=== PATIENT | female | born 1960 | race Caucasian/White ===

== ENCOUNTER 2017-10-25 11:37 | Day surgery (SDC) | payer OTHER ==
[~2017-10-25] VITALS: Ht 157.5 cm; Wt 124.5 kg
--- NOTE | ~2017-10-25 | OP ---
PATIENT NAME: JASON OZUNA MEDICAL RECORD: [id number] :62 LOCATION:[facility], [facility]IN [facility] ADMISSION DATE: SURGEON: CHAYO BRAN DO DATE OF OPERATION: 10/25/2017 PROCEDURE: Colonoscopy with polypectomy, biopsy, stool collection. SCOPE: Olympus video pediatric colonoscope. MEDICATIONS: Propofol 700 mg IV per anesthesia. WITHDRAWAL TIME: 16 minutes. ESTIMATED BLOOD LOSS: Minimal. COMPLICATIONS: None. FINDINGS: Informed consent was given. The patient was made comfortable with the above medication. After reaching an adequate level of sedation by slow IV push, the patient was placed on her left side. A digital rectal examination was performed and was normal. The endoscope was then advanced under direct visualization through the rectum to the cecum with visualization of the appendiceal orifice and the ileocecal valve. The terminal ileum was briefly intubated and appeared normal. The endoscope was then slowly withdrawn and mucosa was carefully examined. The prep quality was fair. There were 3 polyps visualized on today's examination. The first was located in the ascending colon. It was a benign-appearing sessile polyp, which measured approximately 4 mm in diameter. It was removed using hot snare in one piece and completely retrieved. In the transverse colon, there were 2 more polyps which were benign appearing and sessile. They ranged in size from 3-6 mm in diameter. They were both removed using hot forceps and completely removed. Retroflexion was performed in the rectum with visualization of grade I internal hemorrhoids without active bleeding. There were no other polyps, diverticula, or other abnormalities visualized on today's examination. During the procedure, random biopsies were taken with cold forceps to submit for histology and to rule out microscopic colitis. Stool collection was also performed to send for xTAG studies to rule out infectious causes of the patient's diarrhea. IMPRESSION: 1. Three polyps as described above, removed using combination of hot snare and hot forceps. 2. Grade I internal hemorrhoids without active bleeding. 3. Otherwise, normal colonoscopy with collection of stool and random biopsies. PLAN AND RECOMMENDATIONS: 1. Discharge home when recovery parameters are met. 2. High-fiber diet. 3. Continue current medications. 4. We will start cholestyramine 4 grams b.i.d. to bulk the stool and to treat bile salt-induced diarrhea. 5. Further plans will depend on results of cholestyramine trial. 6. Recall colonoscopy in 3 years based on number and types of polyps removed on today's examination. TRANSINT:[id number] Voice Confirmation ID: [id number] DOCUMENT ID: [id number] OPERATIVE REPORT [id number] JASON OZUNA NATHAN A DO at 0934 CC: [id number] DICTATION DATE: 10/25/17 1515 CASINO GAMES DEALER: 10/25/17 1541 [facility] 10/25/17 [id number] [place] [address]
[2017-10-25] MEDS ORDERED: HYDROCODON-ACE1 EAC7 PO (13:24)
[2017-10-25] MEDS ORDERED: TENORMIN50 MG PO (13:25)
[2017-10-25] MEDS ORDERED: SOMA350 MG PO (13:25)
[2017-10-25] MEDS ORDERED: PREMARIN1.25 MG PO (13:26)
[2017-10-25] MEDS ORDERED: ULTRAM50 MG PO (13:26)
[2017-10-25] MEDS ORDERED: ZANAFLEX4 MG PO (13:27)
[2017-10-25] MEDS ORDERED: ZOFRAN4 MG PO (13:27)
[2017-10-25] MEDS ORDERED: REGLAN5 MG PO (13:28)
[2017-10-25] MEDS ORDERED: CARAFATE1 G PO (13:29)
[2017-10-25 13:39] VITALS: BP 152/82; Ht 157.5 cm; Wt 124.5 kg
== END 2017-10-25 16:24 | disposition home or self-care (01) ==
LOC: D.OPS 11:37
DX: K92.1 Melena (principal); K64.0 First degree hemorrhoids; R11.2 Nausea with vomiting, unspecified; D12.2 Benign neoplasm of ascending colon; D12.3 Benign neoplasm of transverse colon; Z01.812 Encounter for preprocedural laboratory examination; I10 Essential (primary) hypertension; E66.01 Morbid (severe) obesity due to excess calories; Z68.43 Body mass index [BMI] 50.0-59.9, adult

== ENCOUNTER 2018-11-01 14:25 | Observation (INO) | payer OTHER ==
[~2018-11-01] VITALS: Ht 157.5 cm; Wt 90.3 kg
[~2018-11-01 14:25] MED LIST: CARAFATE1 G PO; HYDROCODON-ACE1 EAC7 PO; PREMARIN1.25 MG PO; REGLAN5 MG PO; SOMA350 MG PO; TENORMIN50 MG PO; ULTRAM50 MG PO; ZANAFLEX4 MG PO; ZOFRAN4 MG PO
[2018-11-01 15:01] LABS: BASOPHILS 0.2 % (0-2); EOSINOPHILS 1.2 % (0-7); HEMATOCRIT 43.1 % (36.0-48.0); HEMOGLOBIN 14.1 g/dL (12-16); IMMATURE GRANULOCYTES 0.2 % (0-5); LYMPHOCYTES 27.1 % (15-50); MCH 30.4 pg (26.0-34.0); MCHC 32.7 g/dL (31.0-37.0); MCV 92.9 fL (80.0-100.0); MEAN PLATELET VOLUME 10.3 fL (7.4-10.4); MONOCYTES 7.7 % (2-11); NEUTROPHILS 63.6 % (40-80); PLATELET COUNT 299 10x3/uL (130-400); RBC 4.64 10x6/uL (4.00-5.40); RDW 15.2 % (11.5-14.5); WBC 8.2 10x3/uL (4.8-10.8)
[2018-11-01 15:18] LABS: ALBUMIN 2.1 g/dL (3.4-5.0); ALKALINE PHOSPHATASE 351 U/L (46-116); ALT (SGPT) 11 U/L (10-68); AMYLASE - SERUM 17 U/L (25-115); BILIRUBIN - TOTAL 0.42 mg/dL (0.2-1.3); CALC OSMOLALITY 271 mosm/kg (275-300); CALCIUM 7.9 mg/dL (8.5-10.1); CARBON DIOXIDE 26.9 mmol/L (21.0-32.0); CHLORIDE - SERUM 102 mmol/L (98-107); CREATININE - SERUM 0.7 mg/dL (0.6-1.3); GLUCOSE 104 mg/dL (74-106); LIPASE 135 U/L (73-393); POTASSIUM - SERUM 3.8 mmol/L (3.5-5.1); PROTEIN - SERUM 6.2 g/dL (6.4-8.2); SODIUM 137 mmol/L (136-145); UREA NITROGEN 6 mg/dL (7-18); eGFR NON AFRICAN AMERICAN > 90 mL/min (90-120)
[2018-11-01 16:24] LABS: APPEARANCE HAZY (CLEAR); COLOR YELLOW (YELLOW); GLUCOSE NEGATIVE (NEGATIVE); KETONE MODERATE mg/dL (NEGATIVE); NITRITE NEGATIVE (NEGATIVE); PROTEIN TRACE mg/dL (NEGATIVE)
[2018-11-01 16:25] LABS: BACTERIA MANY /hpf (NONE SEEN); BILIRUBIN NEGATIVE (NEGATIVE); EPITHELIAL CELLS 0-5 /hpf (0-5); UROBILINOGEN NORMAL (NORMAL)
--- NOTE | 2018-11-01 20:58 | NUR ---
[facility] STOP TIME IS 1900
[2018-11-02] VITALS (7 sets, daily range): BP systolic 112–175; BP diastolic 66–89; Ht 157.5 cm; Wt 90.3 kg
--- NOTE | 2018-11-02 04:48 | NUR ---
PT IN BED IN LOW FOWLERS POSITION. ALERT AND ORIENTED X4. RESPIRATIONS EVEN AND UNLABORED. VS STABLE AND AFEBRIL. NO CUES OF DISTRESS NOTED. DENIES ANY OTHER NEEDS AT THIS TIME. BED LOW, SIDE RAILS UP X2. CALL LIGHT IN REACH. WILL CONTINUE TO MONITOR.
[2018-11-02 07:02] LABS: BASOPHILS 0.5 % (0-2); EOSINOPHILS 1.8 % (0-7); HEMATOCRIT 43.2 % (36.0-48.0); HEMOGLOBIN 13.7 g/dL (12-16); IMMATURE GRANULOCYTES 0.2 % (0-5); LYMPHOCYTES 33.9 % (15-50); MCHC 31.7 g/dL (31.0-37.0); MCV 94.7 fL (80.0-100.0); MEAN PLATELET VOLUME 11.1 fL (7.4-10.4); MONOCYTES 11.6 % (2-11); PLATELET COUNT 304 10x3/uL (130-400); RBC 4.56 10x6/uL (4.00-5.40); RDW 15.5 % (11.5-14.5); WBC 8.3 10x3/uL (4.8-10.8)
[2018-11-02 07:26] LABS: CALC OSMOLALITY 276 mosm/kg (275-300); CALCIUM 8.1 mg/dL (8.5-10.1); CARBON DIOXIDE 24.5 mmol/L (21.0-32.0); CHLORIDE - SERUM 104 mmol/L (98-107); CREATININE - SERUM 0.7 mg/dL (0.6-1.3); GLUCOSE 79 mg/dL (74-106); SODIUM 140 mmol/L (136-145); eGFR NON AFRICAN AMERICAN > 90 mL/min (90-120)
[2018-11-02 07:31] LABS: UREA NITROGEN 10 mg/dL (7-18)
--- NOTE | 2018-11-02 08:00 | NUR ---
PT RESTING IN BED EYES OPEN CALL LIGHT IN REACH NO PROBLEMS WILL MONITER
--- NOTE | 2018-11-02 13:00 | NUR ---
PT IN GI LAB EGD
--- NOTE | 2018-11-02 13:07 | NUR ---
Wound vac dressing change. Pt was admitted today from home with a dressing attached [facility]. The wound is midline abdomen and measures 19cm x 3.5cm x 2cm. Granulation is noted. Pt has yeasty rash around the incision line. Wound bed is beefy red and without odor. Removed dressing (3 pieces of black foam) and cleansed well with wound beer coil cleaner/patting dry. Applied cavilon skin prep around incision and sprinkled with stoma powder (removing any excess powder). Dressing was applied using 3 pieces of black foam. Settings: -125mmhg low continuous. Pt tolerated well. Also noted that pt has a stage 1 pressure injury area on coccyx. It is nonblanchable redness and is very tender. Recommended calmoseptine cream to this area along with repositioning every 2 hours. Pt turns/repositions/stands without assistance and she voiced her understanding. Wound care will continue monitoring.
--- NOTE | 2018-11-02 13:51 | NUR ---
CAN'T DO UGI/SBFT TODAY, PT. GOING FOR EGD. SPOKE WITH DR. VARGAS'S CASING IN LINE SETTER, CJ. SHE IS TO LET HIM KNOW. POSSIBLY DO UGI/SBFT 11/03/18, DEPENDING ON EGD FINDINGS.
--- NOTE | 2018-11-02 14:00 | NUR ---
PT BACK FROM GI LAB
--- NOTE | 2018-11-02 14:20 | NUR ---
REPORT CALLED TO IVETTE BENNETT. VSS 113/71, 97, 100% RA, 18.
--- NOTE | 2018-11-02 14:46 | MORECARE ---
CASE MANAGEMENT DISCHARGE SUMMARY PATIENT: JASON GEORGE UNIT: [id number] ADM DATE: 11/01/18 AGE: 58 : 62 SEX: F ROOM/BED: D.1207 AUTHOR: JANELL,DOC PHYSICIAN: REFERRING PHYSICIAN: BOB VARGAS MD DATE OF SERVICE: 11/02/18 Discharge Plan Patient Name: JASON GEORGE Facility: [facility]:[place] : 1960 Planned Disposition: Home Anticipated Discharge Date: 11/04/18 Discharge Date: Expected LOS: 3 Initial Reviewer: [email or web address] Initial Review Date: 11/01/2018 Generated: 11/02/18 3:46 pm Comments DCP- Discharge Planning Updated by [email or web address]: Sonia Woods on 11/02/18 1:[address] Patient Name: JASON GEORGE Admission Status: ER Accout number: [id number] Admission Date: 11-01-2018 : 1960 Admission Diagnosis: Attending: BOB VARGAS Current LOS: 1 Anticipated DC Date: 11-04-2018 Planned Disposition: Home Primary Insurance: [facility] [employer] [facility] Discharge Planning Comments: CM met with patient to complete initial dc planning assessment. CM educated patient on the CM role and verbal consent given by patient to complete assessment. Cm verified patient's address, phone numbers, and emergency contact information. Patient lives at home with her . She is able to care for herself but her is there for stand by assistance. At discharge patient plans to return home with resumption of [facility] and feels this is a safe discharge. She has a wound vac that [facility] is providing her wound care for. [facility] signed by patient for resumption and she chose to continue with her current provider. Patient denied further known discharge needs at this time. CM will continue to follow and will assist as needed with dc plans/needs. Cylinder Grinder: Sonia Woods RN, [facility] DCPIA - Discharge Planning Initial Assessment Updated by [email or web address]: Sonia Woods on 11/02/18 2:39 pm * Is the patient Alert and Oriented? Yes * How many steps to enter\exit or inside your home? 3 / RAMP * PCP DR. LAMBERT IN [place] * Pharmacy [facility] [place] * Preadmission Environment Home with Family * ADLs Independent * Equipment Nebulizer Oxygen Rolling Walker Tub Bench Wheelchair Wound Supplies Wound Vac * List name and contact numbers for known caregivers / representatives who currently or will assist patient after discharge: Ary Maharaj - daughter - [phone] Dontae George - son - [phone] * Verbal permission to speak to the caregivers and representatives has been obtained from the patient. Yes * Community resources currently utilized Home Health * Please name any agencies selected above. [facility] * Additional services required to return to the preadmission environment? No * Can the patient safely return to the preadmission environment? Yes * Has this patient been hospitalized within the prior 30 days at any hospital? Yes Patient Name: JASON GEORGE Page [id number] at 1446 All edits/amendments must be made on the electronic document DICTATION DATE: 11/02/181444 SEARCH ENGINE OPTIMIZER: KATH 11/02/18 1445 RPT#: [id number] DC DATE: STATUS: ADM IN [facility] [address] [place] [address] END OF REPORT
--- NOTE | 2018-11-02 16:30 | NUR ---
I have reviewed this patient and I concur with the Shift Assessment completed by the Licensed Practical Nurse today this shift.
--- NOTE | 2018-11-02 19:37 | NUR ---
RESUMIMG PT CARE. PT IS ALERT LAYING IN BED. NO S/S OF DISTRESS NOTED. BED IN LOW POSITION WITH CALL LIGHT IN REACH. WILL CONTINUE TO MONITOR PT AND FOLLOW PLAN OF CARE.
[2018-11-03] VITALS: BP 114/42; BP 175/83
[2018-11-03 04:00] VITALS: BP 126/37
[2018-11-03 06:58] LABS: BASOPHILS 0.3 % (0-2); EOSINOPHILS 2.1 % (0-7); HEMOGLOBIN 11.8 g/dL (12-16); IMMATURE GRANULOCYTES 0.1 % (0-5); LYMPHOCYTES 34.2 % (15-50); MCH 29.9 pg (26.0-34.0); MCHC 31.9 g/dL (31.0-37.0); MCV 93.7 fL (80.0-100.0); MEAN PLATELET VOLUME 10.6 fL (7.4-10.4); MONOCYTES 11.7 % (2-11); NEUTROPHILS 51.6 % (40-80); PLATELET COUNT 274 10x3/uL (130-400); RBC 3.95 10x6/uL (4.00-5.40); RDW 15.5 % (11.5-14.5); WBC 7.5 10x3/uL (4.8-10.8)
[2018-11-03 07:09] LABS: CALC OSMOLALITY 276 mosm/kg (275-300); CALCIUM 7.6 mg/dL (8.5-10.1); CARBON DIOXIDE 25.1 mmol/L (21.0-32.0); CHLORIDE - SERUM 105 mmol/L (98-107); CREATININE - SERUM 0.6 mg/dL (0.6-1.3); GLUCOSE 91 mg/dL (74-106); POTASSIUM - SERUM 3.9 mmol/L (3.5-5.1); SODIUM 140 mmol/L (136-145); UREA NITROGEN 8 mg/dL (7-18); eGFR NON AFRICAN AMERICAN > 90 mL/min (90-120)
[2018-11-03 09:37] VITALS: BP 122/74
[2018-11-03] MEDS ORDERED: LEVAQUIN750 MG PO (10:27)
--- NOTE | 2018-11-03 12:04 | NUR ---
PAGED DR ZAPATA TO INQUIRE ABOUT POSSIBLE DISCHARGE TODAY, AWAITING A RETURN CALL
--- NOTE | 2018-11-03 12:11 | MORECARE ---
CASE MANAGEMENT DISCHARGE SUMMARY PATIENT: JASON GEORGE UNIT: [id number] ADM DATE: 11/01/18 AGE: 58 : 62 SEX: F ROOM/BED: D.1207 AUTHOR: MARCELLO MACIEL PHYSICIAN: REFERRING PHYSICIAN: BOB VARGAS MD DATE OF SERVICE: 11/03/18 Discharge Plan Patient Name: JASON GEORGE Facility: [facility]:[place] : 1960 Planned Disposition: Home Anticipated Discharge Date: 11/04/18 Discharge Date: Expected LOS: 3 Initial Reviewer: [email or web address] Initial Review Date: 11/01/2018 Generated: 11/03/18 1:10 pm Comments DCP- Discharge Planning Updated by [email or web address]: Yoselin Amezquita on 11/03/18 11:[address] Patient Name: JASON GEORGE Admission Status: ER Accout number: [id number] Admission Date: 11-01-2018 : 1960 Admission Diagnosis: Attending: BOB VARGAS Current LOS: 2 Anticipated DC Date: 11-04-2018 Planned Disposition: Home Primary Insurance: [employer] Discharge Planning Comments: PATIENT IS SAFE TO DISCHARGE TODAY, PATIENT STATES WILL RESUME HOME HEALTH WITH [facility]. CM TO FOLLOW AND ASSIST NEEDED. Fiscal Accounting Clerk: Yoselin Amezquita DCP- Discharge Planning Updated by [email or web address]: Sonia Woods on 11/02/18 1:[address] Patient Name: JASON GEORGE Admission Status: ER Accout number: [id number] Admission Date: 11-01-2018 : 1960 Admission Diagnosis: Attending: BOB VARGAS Current LOS: 1 Anticipated DC Date: 11-04-2018 Planned Disposition: Home Primary Insurance: [employer] Discharge Planning Comments: CM met with patient to complete initial dc planning assessment. CM educated patient on the CM role and verbal consent given by patient to complete assessment. Cm verified patient's address, phone numbers, and emergency contact information. Patient lives at home with her . She is able to care for herself but her is there for stand by assistance. At discharge patient plans to return home with resumption of [facility] and feels this is a safe discharge. She has a wound vac that [facility] is providing her wound care for. [facility] signed by patient for resumption and she chose to continue with her current provider. Patient denied further known discharge needs at this time. CM will continue to follow and will assist as needed with dc plans/needs. Fiscal Accounting Clerk: Sonia Woods RN, [facility] DCPIA - Discharge Planning Initial Assessment Updated by [id number]: Sonia Woods on 11/02/18 2:39 pm * Is the patient Alert and Oriented? Yes * How many steps to enter\exit or inside your home? 3 / RAMP * PCP DR. LAMBERT IN [place] * Pharmacy [facility] [place] * Preadmission Environment Home with Family * ADLs Independent * Equipment Nebulizer Oxygen Rolling Walker Tub Bench Wheelchair Wound Supplies Wound Vac * List name and contact numbers for known caregivers / representatives who currently or will assist patient after discharge: Ary Maharaj - daughter - [phone] Dontae George - son - [phone] * Verbal permission to speak to the caregivers and representatives has been obtained from the patient. Yes * Community resources currently utilized Home Health * Please name any agencies selected above. [facility] [place] * Additional services required to return to the preadmission environment? No * Can the patient safely return to the preadmission environment? Yes * Has this patient been hospitalized within the prior 30 days at any hospital? Yes Last DP export: 11/02/18 1:46 p Patient Name: JASON GEORGE Page 64180 at 1211 All edits/amendments must be made on the electronic document DICTATION DATE: 11/03/18 121 FIELD RECORDER: KATH 11/03/18 121 RPT#: [id number] DC DATE: STATUS: ADM IN [facility] [address] [place] [address] END OF REPORT
[2018-11-03] MEDS ORDERED: PROTONIX40 MG PO (14:28)
--- NOTE | 2018-11-03 15:50 | MORECARE ---
CASE MANAGEMENT DISCHARGE SUMMARY PATIENT: JASON GEORGE UNIT: [id number] ADM DATE: 11/01/18 AGE: 58 : 62 SEX: F ROOM/BED: D.1207 AUTHOR: MARCELLO MACIEL PHYSICIAN: REFERRING PHYSICIAN: BOB VARGAS MD DATE OF SERVICE: 11/03/18 Discharge Plan Patient Name: JASON GEORGE Facility: [facility]:[place] : 1960 Planned Disposition: Home Anticipated Discharge Date: 11/04/18 Discharge Date: 11/03/2018 Expected LOS: 3 Initial Reviewer: [email or web address] Initial Review Date: 11/01/2018 Generated: 11/03/18 4:49 pm Comments DCP- Discharge Planning Updated by [email or web address]: Yoselin Amezquita on 11/03/18 11:[address] Patient Name: JASON GEORGE Admission Status: ER Accout number: [id number] Admission Date: 11-01-2018 : 1960 Admission Diagnosis: Attending: BOB VARGAS Current LOS: 2 Anticipated DC Date: 11-04-2018 Planned Disposition: Home Primary Insurance: [employer] Discharge Planning Comments: PATIENT IS SAFE TO DISCHARGE TODAY, PATIENT STATES WILL RESUME HOME HEALTH WITH [facility]. CM TO FOLLOW AND ASSIST NEEDED. Pbx Installer: Yoselin Amezquita DCP- Discharge Planning Updated by [email or web address]: Sonia Woods on 11/02/18 1:[address] Patient Name: JASON GEORGE Admission Status: ER Accout number: [id number] Admission Date: 11-01-2018 : 1960 Admission Diagnosis: Attending: BOB VARGAS Current LOS: 1 Anticipated DC Date: 11-04-2018 Planned Disposition: Home Primary Insurance: [employer] Discharge Planning Comments: CM met with patient to complete initial dc planning assessment. CM educated patient on the CM role and verbal consent given by patient to complete assessment. Cm verified patient's address, phone numbers, and emergency contact information. Patient lives at home with her . She is able to care for herself but her is there for stand by assistance. At discharge patient plans to return home with resumption of [facility] and feels this is a safe discharge. She has a wound vac that [facility] is providing her wound care for. MICHEL signed by patient for resumption and she chose to continue with her current provider. Patient denied further known discharge needs at this time. CM will continue to follow and will assist as needed with dc plans/needs. Pbx Installer: Sonia Woods RN, [facility] DCPIA - Discharge Planning Initial Assessment Updated by [email or web address]: Sonia Woods on 11/02/18 2:39 pm * Is the patient Alert and Oriented? Yes * How many steps to enter\exit or inside your home? 3 / RAMP * PCP DR. LAMBERT IN [place] * Pharmacy [facility] [place] * Preadmission Environment Home with Family * ADLs Independent * Equipment Nebulizer Oxygen Rolling Walker Tub Bench Wheelchair Wound Supplies Wound Vac * List name and contact numbers for known caregivers / representatives who currently or will assist patient after discharge: Ary Maharaj - daughter - [phone] Dontae George - son - [phone] * Verbal permission to speak to the caregivers and representatives has been obtained from the patient. Yes * Community resources currently utilized Home Health * Please name any agencies selected above. [facility] [place] * Additional services required to return to the preadmission environment? No * Can the patient safely return to the preadmission environment? Yes * Has this patient been hospitalized within the prior 30 days at any hospital? Yes Last DP export: 11/03/18 11:11 a Patient Name: JASON GEORGE Page 19964 at 1550 All edits/amendments must be made on the electronic document DICTATION DATE: 11/03/18 154 STRAW HAT PLUNGER OPERATOR: KATH 11/03/18 1549 RPT#: [id number] DC DATE:11/03/18 STATUS: DIS IN [facility] [address] [place] [address] END OF REPORT
== END 2018-11-03 15:45 | disposition home or self-care (01) ==
LOC: D.ER 14:25 → OBSVTIME 17:32 → D.EDHOLD 17:32 → D.M3 17:32
PROVIDERS: Family Medicine; ADMIT Internal Medicine Nephrology; ATTEND Internal Medicine Nephrology
DX: K22.2 Esophageal obstruction (principal); N39.0 Urinary tract infection, site not specified; I10 Essential (primary) hypertension; E66.01 Morbid (severe) obesity due to excess calories; Z68.36 Body mass index [BMI] 36.0-36.9, adult; B96.1 Klebsiella pneumoniae [K. pneumoniae] as the cause of diseases classified elsewhere

== ENCOUNTER 2018-11-14 12:23 | Day surgery (SDC) | payer OTHER | END 2018-11-14 19:45 | disposition home or self-care (01) | LOC: D.OPS 12:23 | DX: R13.10 Dysphagia, unspecified (principal) ==

== ENCOUNTER 2018-11-21 05:38 | Day surgery (SDC) | payer OTHER ==
[~2018-11-21] VITALS: Ht 157.5 cm; Wt 107.7 kg
[~2018-11-21 05:38] MED LIST changes: +LEVAQUIN750 MG PO; +LORAZEPAM1 MG/0.5 M SL; +PROTONIX40 MG PO
[2018-11-21 06:21] LABS: HEMOGLOBIN 13.4 g/dL (12-16); MCH 30.2 pg (26.0-34.0); MCHC 32.7 g/dL (31.0-37.0); MCV 92.3 fL (80.0-100.0); MEAN PLATELET VOLUME 11.9 fL (7.4-10.4); RBC 4.44 10x6/uL (4.00-5.40); RDW 15.9 % (11.5-14.5); WBC 5.6 10x3/uL (4.8-10.8)
[2018-11-21] MEDS ORDERED: NYAMYC60 GM (06:24)
[2018-11-21 06:36] VITALS: BP 121/76; Ht 157.5 cm; Wt 107.7 kg
--- NOTE | 2018-11-21 08:19 | NUR ---
0815-RECD FROM GI LAB. DR BRAN IN TO REPORT FINDINGS. ALERT. IV PATENT. DENIES NAUSEA 0820-FULL LIQUIDS SERVED.
--- NOTE | 2018-11-22 15:43 | OP ---
PATIENT NAME: JASON OZUNA MEDICAL RECORD: [id number] :[birth year] LOCATION:[facility] ADMISSION DATE: SURGEON: CHAYO BRAN DO DATE OF OPERATION: 11/21/2018 PROCEDURE: Esophagoscopy with dilation. SCOPE: Olympus video gastroscope. MEDICATIONS: Propofol 230 mg IV per anesthesia. ESTIMATED BLOOD LOSS: Minimal. COMPLICATIONS: None. FINDINGS AND DESCRIPTION OF PROCEDURE: Informed consent was given. The patient was made comfortable with the above medication and placed on her left side. The endoscope was advanced under direct visualization through the mouth to the esophagus. In the esophagus, as seen before, was a stricture located approximately 4 cm below the cricopharyngeus. The luminal diameter of the stricture was approximately 3-mm in diameter. The stricture could not be traversed. A 8, 9, 10 mm CRE dilating balloon was placed through the working channel of the endoscope and gently passed through the stricture. The stricture was dilated up to approximately 8 to 8-1/2 mm maximum diameter. There was some minor tearing of the mucosal surface as expected, which has been seen in the past. The endoscope could not be passed through the dilation due to the mucosal tearing and the procedure was terminated. Prior to removal of the endoscope, there were some cold forceps biopsies taken from the proximal site of the stricture. The endoscope was then withdrawn from the patient. The patient tolerated the procedure well and there were no immediate complications. IMPRESSION: Benign appearing, severe, esophageal stricture with a luminal diameter of approximately 3 mm diameter, status post balloon dilation to 9 mm. PLAN AND RECOMMENDATIONS: 1. Discharge home when recovery parameters are met. 2. Follow up biopsy specimen results. 3. Continue liquid diet until strictures adequately managed. 4. We will refer to Dr. Smith for consideration of an esophageal stent placement temporarily to provide prolonged dilation of the stricture. Follow up will be dependent on plans with Dr. Smith. TRANSINT:[id number] Voice Confirmation ID: [id number] DOCUMENT ID: [id number] CHAYO BRAN DO at 1543 CC: [id number] DICTATION DATE: 11/21/18 0753 PROGRAM SUPPORT SPECIALIST: 11/21/18 1120 [facility] 11/21/18 [address] [place] [address]
== END 2018-11-21 08:45 | disposition home or self-care (01) ==
LOC: D.OPS 05:38
PROVIDERS: Anesthesiology; ATTEND Internal Medicine Gastroenterology
DX: R13.10 Dysphagia, unspecified (principal); K22.2 Esophageal obstruction; Z01.812 Encounter for preprocedural laboratory examination

== ENCOUNTER → 2018-12-08 11:40 | Outpatient (CLI) | payer OTHER ==
[~2018-12-08 11:40] MED LIST changes: +NYAMYC60 GM
== END | disposition home or self-care (01) ==
LOC: D.CT 11:40
PROVIDERS: ATTEND Surgery
DX: K22.2 Esophageal obstruction (principal)

== ENCOUNTER → 2018-12-09 06:03 | Outpatient (CLI) | payer OTHER | END | disposition home or self-care (01) | LOC: D.MRI 06:03 | PROVIDERS: ATTEND Surgery | DX: Q25.1 Coarctation of aorta (principal); K22.2 Esophageal obstruction ==

== ENCOUNTER 2018-12-12 08:45 | Day surgery (SDC) | payer OTHER ==
[~2018-12-12] VITALS: Ht 157.5 cm; Wt 102.5 kg
--- NOTE | ~2018-12-12 | OP ---
PATIENT NAME: JASON OZUNA MEDICAL RECORD: [id number] :[birth year] LOCATION:[facility] ADMISSION DATE: SURGEON: EVENS RITTER MD DATE OF OPERATION: 12/12/2018 PUBLIC HEALTH ADMINISTRATOR'S NOTE: I assisted Dr. DELVIN Macdonald with an upper endoscopy and placement of an esophageal stent as well as a gastrogram with interpretation by him. I was called to the operating room. Dr. Macdonald was already performing an esophagoscopy on the patient. This is a patient of Dr. Mathews. He had already inserted a 0.035 Jagwire down the esophagus and this was visualized under fluoroscopy. I gave my impression that there was not a false passage, but instead the wire likely had gone between some exudate and the esophageal wall. The esophageal stricture was very tight. After he had injected some dye down through the strictured area, it appeared that the stricture was very lengthy. He and I discussed possible options. We wanted to confirm that the wire was indeed within the stomach. Over the Jagwire, I advanced a 4-Mexican angled diagnostic catheter into the stomach. Through the 4-Mexican diagnostic catheter, I injected dye, which did confirm intragastric placement of the catheter. I then changed out the catheter for a 0.035 Amplatz wire. My participation in the operation did not include any of the endoscopy. Over the Amplatz wire, we marked the proximal landing zone with Glow 'N Tell Tape and a metallic clip. We then dilated with Savary dilators. I dilated up to 18-Mexican dilator. This was visualized under fluoroscopy. We then advanced a partially covered lengthy esophageal stent. This was then deployed. We did this under fluoroscopy. He and I both collaborated in determining where our proximal and distal landing zones would be. Once we were satisfied with how the deployment was going, we finished the deployment and removed the deployment device as well as the wire. We elected not to post-dilate for fear that this might lead to an iatrogenic complication. The procedure was then terminated. TRANSINT:[id number] Voice Confirmation ID: [id number] DOCUMENT ID: [id number] EVENS RITTER MD CC: CHAYO MATHEWS DO [id number] DICTATION DATE: 12/12/181756 EVENING OR NIGHT NURSE SUPERVISOR: 12/12/181952 [facility] 12/12/18 [id number] [place] [id number]
[2018-12-12 09:14] LABS: HEMATOCRIT 42.5 % (36.0-48.0); HEMOGLOBIN 13.8 g/dL (12-16); MCH 29.8 pg (26.0-34.0); MCHC 32.5 g/dL (31.0-37.0); MCV 91.8 fL (80.0-100.0); MEAN PLATELET VOLUME 12.1 fL (7.4-10.4); PLATELET COUNT 205 10x3/uL (130-400); RBC 4.63 10x6/uL (4.00-5.40); RDW 17.6 % (11.5-14.5); WBC 4.9 10x3/uL (4.8-10.8)
[2018-12-12 10:04] VITALS: BP 110/33; Ht 157.5 cm; Wt 102.5 kg
[2018-12-12 10:08] LABS: EOSINOPHILS 2 % (0-7); LYMPHOCYTES 48 % (15-50); MONOCYTES 9 % (2-11); NEUTROPHILS 41 % (40-80); PLATELET ESTIMATE NORMAL
[2018-12-12 10:21] LABS: CALC OSMOLALITY 283 mosm/kg (275-300); CALCIUM 8.4 mg/dL (8.5-10.1); CARBON DIOXIDE 27.5 mmol/L (21.0-32.0); CHLORIDE - SERUM 105 mmol/L (98-107); CREATININE - SERUM 0.8 mg/dL (0.6-1.3); GLUCOSE 84 mg/dL (74-106); POTASSIUM - SERUM 3.4 mmol/L (3.5-5.1); SODIUM 144 mmol/L (136-145); UREA NITROGEN 8 mg/dL (7-18); eGFR NON AFRICAN AMERICAN 78 mL/min (90-120)
--- NOTE | 2018-12-12 14:54 | NUR ---
ISOVUE CONTRAST USED FOR FILLING DILATION DR AASHISH SIMMONS AWARE OF IODINE ALLERGY, DAGOBERTO.
--- NOTE | 2018-12-12 15:21 | NUR ---
BENADRYL GIVEN BY ANESTHESIA PER DR ZENDEJAS FOR IODINE ALLERGY, GASTROGRAFIN USED WELL, DAGOBERTO.
--- NOTE | 2018-12-12 15:48 | NUR ---
PATIENT HAD SMALL BOWEL RESECTION AT ANOTHER FACILITY, SHE HAS A DRESSSING ON ABDOMEN, DAGOBERTO.
--- NOTE | 2018-12-13 10:13 | OP ---
PATIENT NAME: JASON OZUNA MEDICAL RECORD: [id number] :62 LOCATION:D[facility] ADMISSION DATE: SURGEON: KASIA ZENDEJAS MD DATE OF OPERATION: 12/12/2018 SURGEON: Kasia Zendejas MD (JJ) CO-SURGEON: Garland Smith MD PREOPERATIVE DIAGNOSES: 1. Esophageal stricture. 2. Severe dysphagia. POSTOPERATIVE DIAGNOSES: 1. Esophageal stricture. 2. Severe dysphagia. PROCEDURES PERFORMED: EGD with esophageal dilatation and placement of esophageal stent with immediate interpretation of fluoroscopy and esophagram. As noted on previous EGD, the patient's esophageal stricture started at approximately 15-20 cm. It was a near 100% strictured occlusion. A Jagwire was then placed through the working channel of the scope and advanced through the stricture. It was advanced in the stomach under fluoroscopic guidance. At this time, balloon dilatation of the stricture was attempted using a CRE balloon. The 6-, 7-, and 8-mm balloon was inserted and dilated with almost no success. OPERATIVE REPORT: After consent was obtained, the patient was taken to the operating room and placed in the supine position on the operating table. Next, general anesthesia was given via endotracheal intubation after time-out was performed to confirm correct patient and procedure. A bite block was placed. The scope was then inserted through the oropharynx posterior to the epiglottis. The scope was advanced approximately 15 cm, at which point the previously noted esophageal stricture was identified. The scope was not able to be traversed. A Jagwire was placed through the working channel of scope. It was advanced through the esophagus under fluoroscopy to the stomach. The scope was withdrawn with the wire in place. A balloon was then passed through the working channel of the scope, a 6- to 8-mm balloon. The stricture was unable to be dilated with balloon dilatation. At this time, an esophagram was performed. The catheter was passed through the working channel of the scope. IV Benadryl 50 mg was given to the patient. The catheter was placed through the stricture and a contrast esophagram was performed with fluoroscopy. After several minutes, there was filling. There was severe narrowing of the thoracic esophagus. There was contrast filling at the distal esophagus and into the stomach. At this time, Dr. Smith was consulted and assisted in the OR for additional evaluation and interpretation as well as placement of esophageal stent. The working catheter was removed. An exchange catheter was then passed over the Jagwire. Jagwire was removed and contrast was injected, which readily filled the stomach. An Amplatz wire was then placed through the exchange catheter and exchange catheter was removed. At this time, with the scope still within the proximal esophagus, the 15-Wolof Savary dilator was passed over the Amplatz wire. After several minutes of gentle and light traction, it was able to slowly be traversed across the esophagus and into the stomach. This was confirmed with active fluoroscopy. The Savary dilator was then removed and an 18-Wolof Savary dilator was then passed with the Amplatz wire and advanced to the stomach with OPERATIVE REPORT [id number] JASON OZUNA gentle traction. At this time, the [place] [employer] WallFlex partially covered esophageal stent, 18 x 153 mm, was again. The proximal portion of the stricture was marked. The stent was then passed over the Amplatz wire under fluoroscopy and advanced into position. It was deployed under both direct endoscopic vision and fluoroscopy in an appropriate position with obvious reconstitution of the lumen. At this time, the delivery device was removed. The scope was still not able to be traversed across the esophagus, although again contrast was injected and readily filled across the esophagus with no evidence of esophageal injury and into the stomach. At this time, all wires were removed. The scope was removed. The patient was extubated and transferred to the PACU in stable condition. TRANSINT:[id number] Voice Confirmation ID: [id number] DOCUMENT ID: [id number] KASIA ZENDEJAS MD at 1013 CC: [id number] DICTATION DATE: 12/12/18 1602 GAS UTILITY WORKER: 12/12/18 1838 [facility] 12/12/18 [facility] [address] [place] [address]
== END 2018-12-12 18:48 | disposition home or self-care (01) ==
LOC: D.OPS 08:45
PROVIDERS: Anesthesiology; ATTEND Surgery
DX: K22.2 Esophageal obstruction (principal); Z01.812 Encounter for preprocedural laboratory examination

== ENCOUNTER → 2018-12-29 10:14 | Day surgery (SDC) | payer OTHER ==
[~2018-12-29] VITALS: Ht 157.5 cm; Wt 108.0 kg
[~2018-12-29 10:14] MED LIST changes: +FLORAJEN3 CAPS460 MG PO; +POLY-VI-SOL W/I50 ML PO; +PREDNISONE20 MG PO; +PROVENTIL/2.5 MG/3 M INH; +RANITIDINE 15 MG/ML; +VALIUM 2 MG TAB2 MG PO; +ZANTAC300 MG PO
[2018-12-29 10:48] LABS: HEMATOCRIT 36.7 % (36.0-48.0); HEMOGLOBIN 12.1 g/dL (12-16); MCH 30.9 pg (26.0-34.0); MCV 93.6 fL (80.0-100.0); MEAN PLATELET VOLUME 11.3 fL (7.4-10.4); RBC 3.92 10x6/uL (4.00-5.40); RDW 17.2 % (11.5-14.5); WBC 6.5 10x3/uL (4.8-10.8)
[2018-12-29 12:40] VITALS: BP 99/60; Ht 157.5 cm; Wt 108.0 kg
--- NOTE | 2018-12-29 16:41 | NUR ---
1630-PT. ESCORTED VIA WHEELCHAIR TO PERSONAL CAR, LEFT WITH DRIVING.
--- NOTE | 2018-12-30 09:30 | OP ---
PATIENT NAME: JASON OZUNA MEDICAL RECORD: [id number] :62 LOCATION:D.[facility] ADMISSION DATE: SURGEON: KASIA ZENDEJAS MD DATE OF OPERATION: 12/29/2018 SURGEON: Kasia Zendejas MD (JJ) PREOPERATIVE DIAGNOSES: Severe esophageal stricture and history of esophageal stent placement. POSTOPERATIVE DIAGNOSES: Severe esophageal stricture and history of esophageal stent placement. PROCEDURES PERFORMED: 1. EGD with Savary dilatation of esophageal stricture. 2. Esophageal stent removal and biopsy. 3. Esophageal Kenalog injection. ANESTHESIA: Total intravenous anesthesia. COMPLICATIONS: None. SPECIMENS: 1. Gastric biopsy. 2. GE junction biopsy. 3. Esophageal stricture biopsy. OPERATIVE COURSE: After consent was obtained, the patient was taken to the operative suite. A time-out was taken to confirm the correct patient and procedure. A bite-block was placed. Total intravenous anesthesia was administered. The patient was placed in left lateral decubitus position. The scope was passed through the bite-block into the posterior pharynx. This was passed posterior to the epiglottis. At approximately 15 minutes, the esophagus was still strictured with near complete occlusion with stricture of the proximal esophagus at approximately 15 cm. At this time, the wire was placed through the working channel of the scope and advanced through the area of stricture as with the previous EGD. An 8-mm Savary dilator was passed over the wire under direct endoscopic vision and placed across the stricture. This was followed by a 9- and a 10-mm dilatation under direct endoscopic vision with the gastroscope in place. At this time, the Savary dilator was removed. The gastroscope was passed through the area of stricture. There was some resultant [id number] mucosal trauma right beyond the stricture. The esophageal stent was identified. The scope was traversed through the esophageal stent and through to the GE junction into the stomach. The stomach was insufflated. The scope was advanced to the pylorus. The first and second portion of duodenum was intubated. No evidence of duodenal abnormalities. The scope was withdrawn to the stomach. The pylorus appeared intact. There was diffuse gastritis noted throughout the entirety of the stomach. At this time, the scope was retracted to proximal portion of the stent. The proximal portion of the stent was grasped with a rat tooth grasper. The scope and stent were then removed in its entirety and passed the field for permanent pathology. The scope was reinserted and passed posterior to the epiglottis. Again, the area of mucosal trauma was meticulously inspected. There was no evidence of full-thickness injury. The scope was gently advanced. At this time, biopsies were taken at the area of the GE junction, the mid esophagus, and the area of stricture and sent for permanent OPERATIVE REPORT [id number] SULMAJASON pathology. The esophagus was copiously irrigated and suctioned. There was no active bleeding. At this time, the scope was reinserted into the stomach. The stomach was desufflated. The scope was again very gently withdrawn through the esophagus, examining the esophagus in its entirety. At this time, it was decided to inject 80 mg of Kenalog circumferentially at the area of stricture at 15 cm in a 4-quadrant injection to prevent further stricturing. The patient tolerated the Kenalog injection without difficulty. At this time, the scope was removed. The bite-block was removed. The patient was transferred to the recovery room in satisfactory condition. TRANSINT:[id number] Voice Confirmation ID: [id number] DOCUMENT ID: [id number] KASIA ZENDEJAS MD at 0930 CC: [id number] DICTATION DATE: 12/29/18 1500 [employer] OP: 12/29/18 1550 [facility] 12/29/18 [facility] [address] [place] [address]
== END | disposition home or self-care (01) ==
LOC: D.OPS 10:14 → D.PAN 13:00
PROVIDERS: Anesthesiology; ATTEND Surgery
DX: K22.2 Esophageal obstruction (principal); Z46.89 Encounter for fitting and adjustment of other specified devices; K29.50 Unspecified chronic gastritis without bleeding; K20.9 Esophagitis, unspecified; K25.9 Gastric ulcer, unspecified as acute or chronic, without hemorrhage or perforation; Z01.812 Encounter for preprocedural laboratory examination

== ENCOUNTER 2019-02-03 10:51 | Inpatient (IN) | payer OTHER ==
[~2019-02-03] VITALS: Ht 157.5 cm; Wt 102.6 kg
--- NOTE | ~2019-02-03 | HEMODYNAMI ---
PATIENT:JASON OZUNA MEDICAL RECORD: [id number] : 62 LOCATION:D[facility] ADMISSION DATE: 02/03/19 Generatedon:02/03/201917:54 Patient name: JSAON OZUNA Patient #: [id number] SSN: : 1960 Date of study: 02/03/2019 Page: Of Hemodynamic Procedure Report Patient Data Patient Demographics Procedure consent was obtained First Name: JASON Gender: Female Last Name: : 1960 Patient #: [id number] Age: 58 year(s) Race: Unknown Additional ID: [id number] Contact details Address: [address] [place] [address] [place] State: [place] City: [place] Zip code: [address] Admission Admission Data Admission Date: 02/03/2019 Admission Time: 10:51 Room #: D.2234 Procedure Procedure Types Cath Procedure Peripheral Cath Diagnostic Procedure Employee Development Manager Peripheral Procedures PICC PICC Line Placement Procedure Description Procedure Date Procedure Date: 02/03/2019 Procedure Start Time: 17:26 Procedure Staff Name Function Ian Callahan MD Performing Physician Mavis Mora RT Scrub Kimberly Jessica RN Nurse Procedure Data Cath Procedure Fluoroscopy Diagnostic fluoroscopy Total fluoroscopy Time: 0.3 time: 0.3 min min Diagnostic fluoroscopy Total fluoroscopy dose: 2 dose: 2 mGy mGy Hemodynamics Rest Pre Cath Intra NCS Post Cath Procedure Log Time Note 17:20:51 Time tracking: Regular hours (M-F 7:00 - 5:00) 17:20:54 Kimberly Jessica RN sent for patient. Start room use. 17:21:17 Patient received from Med/Surg to IR Alert and oriented. Tansferred to table in Supine position. 17:21:19 Signed procedure consent form obtained from patient. 17:21:20 Pre-procedure instructions explained to patient. 17:21:25 Use device set PICC 17:21:27 Bag Decanter ([id number]) opened to sterile field. 17:21:28 Sterile Angiographic Pack opened to sterile field. 17:21:28 SHIELD Sorbaview ([id number]) opened to sterile field. 17:22:14 Pre-op teaching completed and patient verbalized understanding. 17::22 Left Arm area was prepped with chlora-prep and draped in sterile fashion 17::28 Sedation plan: Local Anesthetic Medication:Lidocaine 17:25:59 --------ALL STOP TIME OUT------ 17:26:00 Final Timeout: patient, procedure, and site verified with staff and physician. All members of the team are in agreement. 17:26:01 Final Timeout: patient, procedure, and site verified with staff and physician. All members of the team are in agreement. 17:26:11 Procedure started. 17:26:11 Full Disclosure recording started 17:26:18 Local anesthetic to left arm with Lidocaine 1% by Ian Callahan MD.INITIAL ACCESS ONLY 17:26:25 PowerPICC 5Fr double lumen catheter opened to sterile field. 17:26:26 SUTURE ETHILON 2-0 BLK MONO FS opened to sterile field. 17:44:42 Venous access obtained using ultrasound guidance. 17:44:45 PICC line was trimmed to 44cm and advanced to the superior vena cava.Position verified under fluoroscopy. 17:45:09 Procedure ended.(Physican Out) 17:52:33 Fluoroscopy time 00.30 minutes. 17:52:37 Fluoroscopy dose: 2 mGy 17:52:37 Flurop Dose total: 2 17:53:24 Procedure and supply charges have been captured, reviewed, submitted and are correct. 17:53:29 Report given to Med/Surg. Device Usage Item Name Manufacture Quantity Catalog Hospital Part Current Minimal Lot# / Number Charge Number Stock Stock Serial# Code Bag Decanter Microtek 1 [id number] 5 () Medical [employer] Sterile Cardinal 1 [id number] [id number] 5 Angiographic Health [facility] Centurion 1 [id number] [id number] 166729 5 Sorbaview ([id number]) PowerPICC Bard 1 [id number] [id number] [id number] 5 5Fr double lumen catheter SUTURE Ethicon 1 [id number] 560406 5 ETHILON 2-0 BLK MONO FS Signature Audit [place] Stage Time Signature Unsigned Intra-Procedure 02/03/2019 Mavis Mora 5:53:58 PM RT(R) [facility] [address] [place] [address]
[~2019-02-03 10:51] MED LIST changes: -FLORAJEN3 CAPS460 MG PO; -POLY-VI-SOL W/I50 ML PO; -PREDNISONE20 MG PO; -RANITIDINE 15 MG/ML; -VALIUM 2 MG TAB2 MG PO; -ZANTAC300 MG PO
[2019-02-03] MEDS ORDERED: VALIUM 2 MG TAB2 MG PO (11:13)
[2019-02-03 11:24] VITALS: BP 143/92; BMI 22.0
[2019-02-03 13:26] VITALS: BP 107/74
[2019-02-03 14:17] LABS: BASOPHILS 0.2 % (0-2); EOSINOPHILS 1.8 % (0-7); HEMATOCRIT 44.6 % (36.0-48.0); HEMOGLOBIN 14.9 g/dL (12-16); IMMATURE GRANULOCYTES 0.3 % (0-5); MCH 32.4 pg (26.0-34.0); MCHC 33.4 g/dL (31.0-37.0); MEAN PLATELET VOLUME 11.7 fL (7.4-10.4); MONOCYTES 10.8 % (2-11); NEUTROPHILS 59.9 % (40-80); RDW 13.9 % (11.5-14.5); WBC 10.7 10x3/uL (4.8-10.8)
[2019-02-03 14:21] LABS: PLATELET COUNT 277 10x3/uL (130-400)
[2019-02-03 14:22] LABS: CALC OSMOLALITY 280 mosm/kg (275-300); CALCIUM 9.7 mg/dL (8.5-10.1); CARBON DIOXIDE 26.3 mmol/L (21.0-32.0); CHLORIDE - SERUM 100 mmol/L (98-107); CREATININE - SERUM 0.8 mg/dL (0.6-1.3); GLUCOSE 78 mg/dL (74-106); MAGNESIUM - SERUM 1.7 mg/dL (1.8-2.4); PHOSPHOROUS 3.9 mg/dL (2.5-4.9); POTASSIUM - SERUM 3.6 mmol/L (3.5-5.1); SODIUM 141 mmol/L (136-145); TRIGLYCERIDE 130 mg/dL (30-200); UREA NITROGEN 15 mg/dL (7-18); eGFR NON AFRICAN AMERICAN 78 mL/min (90-120)
[2019-02-03 15:23] VITALS: Ht 157.5 cm; Wt 102.6 kg
[2019-02-03 17:25] VITALS: BP 114/58
[2019-02-03 20:40] VITALS: BP 143/89
[2019-02-04 00:19] VITALS: BP 114/81
[2019-02-04 04:50] VITALS: BP 154/69
[2019-02-04 05:27] LABS: BASOPHILS 0.4 % (0-2); EOSINOPHILS 7.6 % (0-7); HEMATOCRIT 40.6 % (36.0-48.0); HEMOGLOBIN 13.1 g/dL (12-16); IMMATURE GRANULOCYTES 0.1 % (0-5); LYMPHOCYTES 33.9 % (15-50); MCH 31.3 pg (26.0-34.0); MCHC 32.3 g/dL (31.0-37.0); MCV 96.9 fL (80.0-100.0); MONOCYTES 9.9 % (2-11); NEUTROPHILS 48.1 % (40-80); PLATELET COUNT 240 10x3/uL (130-400); RBC 4.19 10x6/uL (4.00-5.40); RDW 13.9 % (11.5-14.5)
[2019-02-04 05:33] LABS: WBC 7.1 10x3/uL (4.8-10.8)
[2019-02-04 06:05] LABS: CALC OSMOLALITY 278 mosm/kg (275-300); CALCIUM 8.8 mg/dL (8.5-10.1); CARBON DIOXIDE 27.3 mmol/L (21.0-32.0); CHLORIDE - SERUM 101 mmol/L (98-107); CREATININE - SERUM 0.8 mg/dL (0.6-1.3); GLUCOSE 125 mg/dL (74-106); MAGNESIUM - SERUM 1.6 mg/dL (1.8-2.4); PHOSPHOROUS 3.6 mg/dL (2.5-4.9); POTASSIUM - SERUM 3.2 mmol/L (3.5-5.1); SODIUM 138 mmol/L (136-145); UREA NITROGEN 18 mg/dL (7-18); eGFR NON AFRICAN AMERICAN 78 mL/min (90-120)
[2019-02-04 08:58] VITALS: BP 146/75
[2019-02-04 12:35] VITALS: BP 157/92
[2019-02-04 17:36] VITALS: BP 170/97
[2019-02-04 20:21] VITALS: BP 153/75
[2019-02-05 00:32] VITALS: BP 145/72
[2019-02-05 04:37] VITALS: BP 141/76
[2019-02-05 06:28] LABS: BASOPHILS 0.7 % (0-2); EOSINOPHILS 9.4 % (0-7); HEMATOCRIT 38.9 % (36.0-48.0); HEMOGLOBIN 12.7 g/dL (12-16); IMMATURE GRANULOCYTES 0.2 % (0-5); LYMPHOCYTES 42.5 % (15-50); MCH 31.4 pg (26.0-34.0); MCHC 32.6 g/dL (31.0-37.0); MCV 96.3 fL (80.0-100.0); MEAN PLATELET VOLUME 11.8 fL (7.4-10.4); MONOCYTES 12.5 % (2-11); NEUTROPHILS 34.7 % (40-80); PLATELET COUNT 203 10x3/uL (130-400); RBC 4.04 10x6/uL (4.00-5.40); RDW 13.8 % (11.5-14.5); WBC 5.8 10x3/uL (4.8-10.8)
[2019-02-05 06:54] LABS: CALCIUM 8.5 mg/dL (8.5-10.1); CARBON DIOXIDE 27.6 mmol/L (21.0-32.0); CHLORIDE - SERUM 105 mmol/L (98-107); GLUCOSE 126 mg/dL (74-106); MAGNESIUM - SERUM 1.7 mg/dL (1.8-2.4); PHOSPHOROUS 3.2 mg/dL (2.5-4.9); SODIUM 140 mmol/L (136-145)
[2019-02-05 06:55] LABS: CALC OSMOLALITY 280 mosm/kg (275-300); CREATININE - SERUM 0.5 mg/dL (0.6-1.3); UREA NITROGEN 12 mg/dL (7-18); eGFR NON AFRICAN AMERICAN > 90 mL/min (90-120)
[2019-02-05 07:28] VITALS: BP 118/75
[2019-02-05 12:52] VITALS: BP 143/78
[2019-02-05 18:24] VITALS: BP 150/63
[2019-02-05 20:00] VITALS: BP 157/88
[2019-02-06] VITALS: BP 124/79
[2019-02-06 03:07] LABS: BASOPHILS 0.5 % (0-2); HEMATOCRIT 38.6 % (36.0-48.0); HEMOGLOBIN 12.5 g/dL (12-16); IMMATURE GRANULOCYTES 0.2 % (0-5); LYMPHOCYTES 39.4 % (15-50); MCH 31.3 pg (26.0-34.0); MCHC 32.4 g/dL (31.0-37.0); MCV 96.5 fL (80.0-100.0); MONOCYTES 11.6 % (2-11); NEUTROPHILS 41.3 % (40-80); PLATELET COUNT 166 10x3/uL (130-400); RDW 13.6 % (11.5-14.5); WBC 6.4 10x3/uL (4.8-10.8)
[2019-02-06 03:26] LABS: CALC OSMOLALITY 279 mosm/kg (275-300); CALCIUM 8.7 mg/dL (8.5-10.1); CARBON DIOXIDE 28.8 mmol/L (21.0-32.0); CHLORIDE - SERUM 106 mmol/L (98-107); CREATININE - SERUM 0.4 mg/dL (0.6-1.3); GLUCOSE 114 mg/dL (74-106); MAGNESIUM - SERUM 1.4 mg/dL (1.8-2.4); PHOSPHOROUS 3.6 mg/dL (2.5-4.9); SODIUM 141 mmol/L (136-145); eGFR NON AFRICAN AMERICAN > 90 mL/min (90-120)
[2019-02-06 03:28] LABS: UREA NITROGEN 8 mg/dL (7-18)
[2019-02-06 04:00] VITALS: BP 151/80
[2019-02-06 09:02] VITALS: BP 140/80
[2019-02-06 13:12] VITALS: BP 135/73
[2019-02-06 20:11] VITALS: BP 144/75
[2019-02-07] VITALS: BP 137/82
[2019-02-07 04:00] VITALS: BP 153/88
[2019-02-07 06:32] LABS: BASOPHILS 0.1 % (0-2); EOSINOPHILS 0.2 % (0-7); HEMATOCRIT 39.7 % (36.0-48.0); HEMOGLOBIN 12.9 g/dL (12-16); IMMATURE GRANULOCYTES 0.3 % (0-5); LYMPHOCYTES 15.3 % (15-50); MCH 31.2 pg (26.0-34.0); MCHC 32.5 g/dL (31.0-37.0); MCV 95.9 fL (80.0-100.0); MEAN PLATELET VOLUME 12.1 fL (7.4-10.4); MONOCYTES 9.2 % (2-11); NEUTROPHILS 74.9 % (40-80); PLATELET COUNT 199 10x3/uL (130-400); RBC 4.14 10x6/uL (4.00-5.40); RDW 13.5 % (11.5-14.5)
[2019-02-07 06:44] LABS: WBC 9.4 10x3/uL (4.8-10.8)
[2019-02-07 06:56] LABS: CALC OSMOLALITY 274 mosm/kg (275-300); CARBON DIOXIDE 24.9 mmol/L (21.0-32.0); CHLORIDE - SERUM 105 mmol/L (98-107); CREATININE - SERUM 0.5 mg/dL (0.6-1.3); GLUCOSE 146 mg/dL (74-106); SODIUM 137 mmol/L (136-145); UREA NITROGEN 7 mg/dL (7-18); eGFR NON AFRICAN AMERICAN > 90 mL/min (90-120)
--- NOTE | 2019-02-07 08:37 | OP ---
PATIENT NAME: JASON OZUNA MEDICAL RECORD: [id number] :62 LOCATION:[facility] ADMISSION DATE:02/03/19 SURGEON: KASIA ZENDEJAS MD DATE OF OPERATION: 02/06/2019 SURGEON: Kasia Zendejas MD PREOPERATIVE DIAGNOSIS: Completely occlusive cervical esophageal stricture. POSTOPERATIVE DIAGNOSIS: Completely occlusive cervical esophageal stricture. PROCEDURE PERFORMED: Laparoscopic lysis of adhesions, laparoscopic gastrostomy tube placement. ANESTHESIA: General. COMPLICATIONS: None. ESTIMATED BLOOD LOSS: 100 cc. Case is clean contaminated. OPERATIVE COURSE: After consent was obtained, the patient was taken to the operating room and placed in the supine position on the operating room table. Next, general anesthesia was given via endotracheal intubation after a timeout was performed to confirm the correct patient and procedure. The abdomen was prepped and draped in typical sterile fashion. Local anesthetic was injected in the left upper quadrant at Samuel's point. Using a 5-mm bladeless optical trocar, the abdomen was entered under direct laparoscopic vision. Adequate pneumoperitoneum was achieved. The patient had dense intraabdominal adhesions. The patient had history of previous small bowel perforation requiring laparotomy, small bowel resection, and delayed abdominal closure. A second 5-mm trocar was able to be placed in the left lateral quadrant. Lysis of adhesion was performed with a sharp scissor dissection as well as Harmonic scalpel. Significant portion of the case as it took required 3/4 of the total operative time. Laparoscopic adhesiolysis was continued in the right upper quadrant. Once this was complete, a 5-mm trocar was placed in the midline under direct laparoscopic vision. An 8 mm and 5-mm trocar placed in the right lateral quadrants under direct laparoscopic vision. The stomach was dissected. 3-0 silk sutures were placed into the stomach. Using a Aneudy-Bouchra suture passer, the sutures were passed transfascially. A gastrotomy was then made using the Harmonic scalpel and the left upper quadrant trocar was removed. The 16-Maori gastrostomy tube was passed through the left upper quadrant incision. It was placed into the gastrotomy. The balloon was inflated. The silk transfascial sutures were then tied opposing the anterior surface of the stomach to the abdominal wall. The G-tube was secured to the skin using 0 silk suture. At this time, the abdomen was copiously irrigated and suctioned paying careful attention to hemostasis. All areas of small bowel and colon that were dissected off the anterior abdominal wall were meticulously inspected. There was no evidence of bowel injury, no evidence of bleeding, no evidence of succuss. At this time, all remaining instruments removed. The abdomen was desufflated. Trocars removed. Skin was closed with girma. At the end of the case, all needle and instrument counts were correct. No complications occurred. The patient was transferred to recovery room in satisfactory condition. OPERATIVE REPORT [id number] SULMAJASON TRANSINT:[id number] Voice Confirmation ID: [id number] DOCUMENT ID: [id number] KASIA ZENDEJAS MD at 0837 CC: [id number] DICTATION DATE: 02/06/191933 DATA ENTRY ASSOCIATE: 02/06/19 2342 ADM IN [facility] [address] [place] [address]
[2019-02-07 09:08] VITALS: BP 110/66
--- NOTE | 2019-02-07 14:56 | MORECARE ---
CASE MANAGEMENT DISCHARGE SUMMARY PATIENT: JASON GEORGE UNIT: [id number] ADM DATE: 02/03/19 AGE: 58 : 62 SEX: F ROOM/BED: D.2234 AUTHOR: MARCELLO MACIEL PHYSICIAN: REFERRING PHYSICIAN: KASIA ZENDEJAS MD DATE OF SERVICE: 02/07/19 Discharge Plan Patient Name: JASON GEORGE Facility: [facility] : 1960 Planned Disposition: Home with Home Health Anticipated Discharge Date: Discharge Date: Expected LOS: Initial Reviewer: [email or web address] Initial Review Date: 02/07/2019 Generated: 02/07/19 3:56 pm DCPIA - Discharge Planning Initial Assessment Updated by [email or web address]: Nancy Lei on 02/07/19 2:54 pm * Is the patient Alert and Oriented? Yes * How many steps to enter\exit or inside your home? ramp * PCP Dr. Rodriguez in [place] * Pharmacy [facility] in [place] * Preadmission Environment Home with Family * ADLs Partial Dependent * Partial ADLs (Assistance needed) Ambulation * Equipment Nebulizer Rolling Walker Tub Bench Wheelchair * List name and contact numbers for known caregivers / representatives who currently or will assist patient after discharge: Ary Mahraaj [facility] - [phone] Dontae George [facility] - [phone] * Verbal permission to speak to the caregivers and representatives has been obtained from the patient. Yes * Community resources currently utilized None * Additional services required to return to the preadmission environment? Yes * Can the patient safely return to the preadmission environment? Yes * Has this patient been hospitalized within the prior 30 days at any hospital? No External Providers External Provider: OTHER-OTHER Next Contact Date: Service Request Date: Service Type: Resolution: Reviewer: Comments: [facility] Next Contact Date: Service Request Date: Service Type: Resolution: Reviewer: Comments: Patient Name: JASON GEORGE Page [phone] at 1451 All edits/amendments must be made on the electronic document DICTATION DATE: 081455 TALENT PROGRAM MANAGER: DM 02/07/191455 RPT#: [id number] DC DATE: STATUS: ADM IN [facility] [address] [place] [address] END OF REPORT
--- NOTE | 2019-02-07 15:15 | MORECARE ---
CASE MANAGEMENT DISCHARGE SUMMARY PATIENT: JASON GEORGE UNIT: [id number] ADM DATE: 02/03/19 AGE: 58 : 62 SEX: F ROOM/BED: D.2234 AUTHOR: JANELL,DOC PHYSICIAN: REFERRING PHYSICIAN: KASIA ZENDEJAS MD DATE OF SERVICE: 02/07/19 Discharge Plan Patient Name: JASON GEORGE Facility: [facility]:[place] : 1960 Planned Disposition: Home with Home Health Anticipated Discharge Date: Discharge Date: Expected LOS: Initial Reviewer: [email or web address] Initial Review Date: 02/07/2019 Generated: 02/07/19 4:14 pm Comments DCP- Discharge Planning Updated by [email or web address]: Nancy Lei on 02/07/19 2:[address] Patient Name: JASON GEORGE Admission Status: Elective Accout number: [id number] Admission Date: 02-03-2019 : 1960 Admission Diagnosis: Attending: KASIA ZENDEJAS Current LOS: 4 Anticipated DC Date: Planned Disposition: Home with Home Health Primary Insurance: [facility] [employer] B[employer]D Discharge Planning Comments: CM met with patient to discuss discharge planning/needs. She states that she lives with her . States she is independent with ADL's and IADL's. States she has become weaker since she has been sick and no longer drives, but her family drives her where she needs to go. I discussed the availability of rehab, SNF and home health. She plans on returning home and would like to have [facility] on discharge (she has had them in the past). I also discussed need for an infusion company for her tube feeding supplies. She doesn't have a preference of infusion company. States she would like to use one in [place]. I asked [facility] who they usually use and they state [facility]. Patient is in agreement to use [facility]. I called and spoke to [place] and clinical faxed to them at [phone]. Clinical faxed to [facility] at [phone]. CM will continue to follow and assist with discharge planning/needs. Wood Fence Erector: Nancy Lei DCPIA - Discharge Planning Initial Assessment Updated by [email or web address]: Nancy Lei on 02/07/19 2:54 pm * Is the patient Alert and Oriented? Yes * How many steps to enter\exit or inside your home? ramp * PCP Dr. Rodriguez in [place] * Pharmacy [facility] in [place] * Preadmission Environment Home with Family * ADLs Partial Dependent * Partial ADLs (Assistance needed) Ambulation * Equipment Nebulizer Rolling Walker Tub Bench Wheelchair * List name and contact numbers for known caregivers / representatives who currently or will assist patient after discharge: Ary Maharaj - [facility] - [phone] Dontae George [facility] - [phone] * Verbal permission to speak to the caregivers and representatives has been obtained from the patient. Yes * Community resources currently utilized None * Additional services required to return to the preadmission environment? Yes * Can the patient safely return to the preadmission environment? Yes * Has this patient been hospitalized within the prior 30 days at any hospital? No Coverage Notice Reviewer: [email or web address] - Nancy Lei Notice Issued Date-Time: 02/07/2019 15:11 Notice Type: Patient Choice Letter Notice Delivered To: Patient Relationship to Patient: Self Sheet Metal Smith Name: Delivery Method: HAND - Hand Delivered [place] Days: Prior Verbal Notification: Recipient Understood Notice: Yes Recipient Signature: Yes Med Rec Note Co-signed by Attending: Coverage Notice Comment: MICHEL for [facility] Care infusion company and [facility] Last DP export: 02/07/19 1:57 p Patient Name: JASON GEORGE Page [phone] at 1514 All edits/amendments must be made on the electronic document DICTATION DATE: 02/07/191513 ARCHEOLOGY PROFESSOR: KATH 02/07/191513 RPT#: [id number] DC DATE: STATUS: ADM IN [facility] [address] [place] [address] END OF REPORT
[2019-02-07 17:59] LABS: APPEARANCE CLEAR (CLEAR); BILIRUBIN NEGATIVE (NEGATIVE); COLOR YELLOW (YELLOW); GLUCOSE NEGATIVE (NEGATIVE); KETONE NEGATIVE (NEGATIVE); NITRITE NEGATIVE (NEGATIVE); PROTEIN NEGATIVE (NEGATIVE); UROBILINOGEN NORMAL (NORMAL)
[2019-02-07 20:00] VITALS: BP 125/77
[2019-02-08 04:00] VITALS: BP 112/63
[2019-02-08 05:47] LABS: BASOPHILS 0.2 % (0-2); EOSINOPHILS 4.3 % (0-7); HEMATOCRIT 37.7 % (36.0-48.0); HEMOGLOBIN 12.1 g/dL (12-16); IMMATURE GRANULOCYTES 0.3 % (0-5); LYMPHOCYTES 30.3 % (15-50); MCHC 32.1 g/dL (31.0-37.0); MCV 96.7 fL (80.0-100.0); MONOCYTES 15.7 % (2-11); NEUTROPHILS 49.2 % (40-80); PLATELET COUNT 160 10x3/uL (130-400); RDW 13.9 % (11.5-14.5); WBC 9.5 10x3/uL (4.8-10.8)
[2019-02-08 05:57] LABS: CALC OSMOLALITY 274 mosm/kg (275-300); CALCIUM 8.7 mg/dL (8.5-10.1); CHLORIDE - SERUM 102 mmol/L (98-107); CREATININE - SERUM 0.6 mg/dL (0.6-1.3); GLUCOSE 118 mg/dL (74-106); POTASSIUM - SERUM 4.3 mmol/L (3.5-5.1); SODIUM 138 mmol/L (136-145); UREA NITROGEN 8 mg/dL (7-18); eGFR NON AFRICAN AMERICAN > 90 mL/min (90-120)
[2019-02-08 08:48] VITALS: BP 116/62
[2019-02-08 11:43] VITALS: BP 117/68
--- NOTE | 2019-02-08 13:14 | MORECARE ---
CASE MANAGEMENT DISCHARGE SUMMARY PATIENT: JASON GEORGE UNIT: [id number] ADM DATE: 02/03/19 AGE: 58 : 62 SEX: F ROOM/BED: D.2234 AUTHOR: JANELL,DOC PHYSICIAN: REFERRING PHYSICIAN: KASIA ZENDEJAS MD DATE OF SERVICE: 02/08/19 Discharge Plan Patient Name: JASON GEORGE Facility: [facility]:[place] : 1960 Planned Disposition: Home with Home Health Anticipated Discharge Date: Discharge Date: Expected LOS: Initial Reviewer: [email or web address] Initial Review Date: 02/07/2019 Generated: 02/08/19 2:14 pm Comments DCP- Discharge Planning Updated by [id number]: Nancy Lei on 02/08/19 12:[address] Spoke with Yoselin with [facility], they will accept the patient when she is discharged. I spoke with Oneida with [facility] and she will bring feeding supplies to the hospital tomorrow and begin teaching on tube feeding/pump. CM will continue to follow and assist with discharge planning/needs. DCP- Discharge Planning Updated by [email or web address]: Nancy Lei on 02/07/19 2:[address] Patient Name: JASON GEORGE Admission Status: Elective Accout number: [id number] Admission Date: 02-03-2019 : 1960 Admission Diagnosis: Attending: KASIA ZENDEJAS Current LOS: 4 Anticipated DC Date: Planned Disposition: Home with Home Health Primary Insurance: [facility] HEALTH BENEFIT FUND Discharge Planning Comments: CM met with patient to discuss discharge planning/needs. She states that she lives with her . States she is independent with ADL's and IADL's. States she has become weaker since she has been sick and no longer drives, but her family drives her where she needs to go. I discussed the availability of rehab, SNF and home health. She plans on returning home and would like to have [facility] health on discharge (she has had them in the past). I also discussed need for an infusion company for her tube feeding supplies. She doesn't have a preference of infusion company. States she would like to use one in [place]. I asked [facility] who they usually use and they state [facility]. Patient is in agreement to use [facility]. I called and spoke to [place] and clinical faxed to them at [phone]. Clinical faxed to [facility] at [phone]. CM will continue to follow and assist with discharge planning/needs. Sales Officer: Nancy Lei DCPIA - Discharge Planning Initial Assessment Updated by [email or web address]: Nancy Lei on 02/07/19 2:54 pm * Is the patient Alert and Oriented? Yes * How many steps to enter\exit or inside your home? ramp * PCP Dr. Rodriguez in [place] * [facility] [place] * Preadmission Environment Home with Family * ADLs Partial Dependent * Partial ADLs (Assistance needed) Ambulation * Equipment Nebulizer Rolling Walker Tub Bench Wheelchair * List name and contact numbers for known caregivers / representatives who currently or will assist patient after discharge: Ary Maharaj - R - [phone] Dontae George [facility] - [phone] * Verbal permission to speak to the caregivers and representatives has been obtained from the patient. Yes * Community resources currently utilized None * Additional services required to return to the preadmission environment? Yes * Can the patient safely return to the preadmission environment? Yes * Has this patient been hospitalized within the prior 30 days at any hospital? No Coverage Notice Reviewer: [id number] - Nancy Lei Notice Issued Date-Time: 02/07/2019 15:11 Notice Type: Patient Choice Letter Notice Delivered To: Patient Relationship to Patient: Self Regulatory Law Specialist Name: Delivery Method: HAND - Hand Delivered [place] Days: Prior Verbal Notification: Recipient Understood Notice: Yes Recipient Signature: Yes Med Rec Note Co-signed by Attending: Coverage Notice Comment: MICHEL for [facility] infusion company and [facility] Last DP export: 02/07/19 2:14 p Patient Name: JASON GEORGE Page [id number] at 1314 All edits/amendments must be made on the electronic document DICTATION DATE: 02/08/19 1314 GUIDE WINDER: KATH 02/08/19 1314 RPT#: [id number] DC DATE: STATUS: ADM IN [facility] [address] [place] [address] END OF REPORT
[2019-02-08 16:34] VITALS: BP 107/62
[2019-02-08 20:00] VITALS: BP 97/47
[2019-02-09 04:00] VITALS: BP 102/48
[2019-02-09 06:33] LABS: BASOPHILS 0.8 % (0-2); EOSINOPHILS 6.3 % (0-7); HEMATOCRIT 35.9 % (36.0-48.0); HEMOGLOBIN 11.5 g/dL (12-16); IMMATURE GRANULOCYTES 0.4 % (0-5); LYMPHOCYTES 30.3 % (15-50); MCH 30.9 pg (26.0-34.0); MCV 96.5 fL (80.0-100.0); MEAN PLATELET VOLUME 11.9 fL (7.4-10.4); MONOCYTES 17.4 % (2-11); NEUTROPHILS 44.8 % (40-80); PLATELET COUNT 148 10x3/uL (130-400); RBC 3.72 10x6/uL (4.00-5.40); RDW 13.8 % (11.5-14.5)
[2019-02-09 06:53] LABS: CALC OSMOLALITY 274 mosm/kg (275-300); CARBON DIOXIDE 30.6 mmol/L (21.0-32.0); CHLORIDE - SERUM 102 mmol/L (98-107); CREATININE - SERUM 0.5 mg/dL (0.6-1.3); GLUCOSE 139 mg/dL (74-106); POTASSIUM - SERUM 4.5 mmol/L (3.5-5.1); SODIUM 137 mmol/L (136-145); UREA NITROGEN 10 mg/dL (7-18); eGFR NON AFRICAN AMERICAN > 90 mL/min (90-120)
[2019-02-09 09:39] VITALS: BP 104/55
[2019-02-09 11:56] VITALS: BP 97/41
--- NOTE | 2019-02-09 15:44 | MORECARE ---
CASE MANAGEMENT DISCHARGE SUMMARY PATIENT: JASON OZUNA UNIT: [id number] ADM DATE: 02/03/19 AGE: 58 : 62 SEX: F ROOM/BED: D.2234 AUTHOR: JANELL,DOC PHYSICIAN: REFERRING PHYSICIAN: KASIA ZENDEJAS MD DATE OF SERVICE: 02/09/19 Discharge Plan Patient Name: JASON OZUNA Facility: [facility]:[place] : 1960 Planned Disposition: Home with Home Health Anticipated Discharge Date: Discharge Date: Expected LOS: Initial Reviewer: [email or web address] Initial Review Date: 02/07/2019 Generated: 02/09/19 4:43 pm Comments DCP- Discharge Planning Updated by [email or web address]: Nancy Do on 02/09/19 2:[address] I received a call from [facility] that states patient has used all her home health benefits and will not be eligible for home health. I informed the patient and she states her son and daughter are nurses and will be able to assist her with her tube feedings. She states [facility] has already been here and instructed her on the use of her pump. I have attempted to call September with [facility] about the supplies and feeding and left a message. CM will continue to follow and assist with discharge planning/needs. DCP- Discharge Planning Updated by [id number]: Nancy Do on 02/08/19 12:[address] Spoke with Yoselin with [facility], they will accept the patient when she is discharged. I spoke with Oneida with [facility] and she will bring feeding supplies to the hospital tomorrow and begin teaching on tube feeding/pump. CM will continue to follow and assist with discharge planning/needs. DCP- Discharge Planning Updated by [email or web address]: Nancy Barronmaría elena on 02/07/19 2:[address] Patient Name: JASON OZUNA Admission Status: Elective Accout number: [id number] Admission Date: 02-03-2019 : 1960 Admission Diagnosis: Attending: KASIA ZENDEJAS Current LOS: 4 Anticipated DC Date: Planned Disposition: Home with Home Health Primary Insurance: [employer]ALTH BENEFIT FUND Discharge Planning Comments: CM met with patient to discuss discharge planning/needs. She states that she lives with her . States she is independent with ADL's and IADL's. States she has become weaker since she has been sick and no longer drives, but her family drives her where she needs to go. I discussed the availability of rehab, SNF and home health. She plans on returning home and would like to have [facility] on discharge (she has had them in the past). I also discussed need for an infusion company for her tube feeding supplies. She doesn't have a preference of infusion company. States she would like to use one in [place]. I asked [facility] who they usually use and they state [facility]. Patient is in agreement to use [facility]. I called and spoke to [place] and clinical faxed to them at [phone]. Clinical faxed to [facility] at [phone]. CM will continue to follow and assist with discharge planning/needs. Water Meter Installer: Nancy Lei DCPIA - Discharge Planning Initial Assessment Updated by [id number]: Nancy Lei on 02/07/19 2:54 pm * Is the patient Alert and Oriented? Yes * How many steps to enter\exit or inside your home? ramp * PCP Dr. Rodriguez in [place] * Pharmacy [facility] in [place] * Preadmission Environment Home with Family * ADLs Partial Dependent * Partial ADLs (Assistance needed) Ambulation * Equipment Nebulizer Rolling Walker Tub Bench Wheelchair * List name and contact numbers for known caregivers / representatives who currently or will assist patient after discharge: Ary Maharaj DTR - [phone] Dontae Guevara [facility] - [phone] * Verbal permission to speak to the caregivers and representatives has been obtained from the patient. Yes * Community resources currently utilized None * Additional services required to return to the preadmission environment? Yes * Can the patient safely return to the preadmission environment? Yes * Has this patient been hospitalized within the prior 30 days at any hospital? No Coverage Notice Reviewer: [id number] - Nancy Lei Notice Issued Date-Time: 02/07/2019 15:11 Notice Type: Patient Choice Letter Notice Delivered To: Patient Relationship to Patient: Self Prison Warden Name: Delivery Method: HAND - Hand Delivered [place] Days: Prior Verbal Notification: Recipient Understood Notice: Yes Recipient Signature: Yes Med Rec Note Co-signed by Attending: Coverage Notice Comment: MICHEL for [facility] infusion company and [employer] [facility] Last DP export: 02/08/19 12:14 p Patient Name: JASON OZUNA Page [id number] at 1544 All edits/amendments must be made on the electronic document DICTATION DATE: 02/09/19 154 RECORDS MANAGEMENT ASSISTANT: KATH 02/09/19 1543 RPT#: [id number] DC DATE: STATUS: ADM IN [facility] [address] [place] [address] END OF REPORT
[2019-02-09 15:45] VITALS: BP 105/46
[2019-02-09 20:00] VITALS: BP 97/65
[2019-02-10] VITALS: BP 100/44
[2019-02-10 04:00] VITALS: BP 110/50
[2019-02-10 06:36] LABS: BASOPHILS 0.4 % (0-2); EOSINOPHILS 7.1 % (0-7); HEMATOCRIT 36.1 % (36.0-48.0); HEMOGLOBIN 11.6 g/dL (12-16); IMMATURE GRANULOCYTES 0.1 % (0-5); LYMPHOCYTES 30.3 % (15-50); MCH 30.9 pg (26.0-34.0); MCHC 32.1 g/dL (31.0-37.0); MEAN PLATELET VOLUME 12.7 fL (7.4-10.4); MONOCYTES 15.4 % (2-11); NEUTROPHILS 46.7 % (40-80); PLATELET COUNT 150 10x3/uL (130-400); RBC 3.76 10x6/uL (4.00-5.40); RDW 13.4 % (11.5-14.5); WBC 6.7 10x3/uL (4.8-10.8)
[2019-02-10 07:56] LABS: CALC OSMOLALITY 274 mosm/kg (275-300); CALCIUM 9.3 mg/dL (8.5-10.1); CARBON DIOXIDE 29.9 mmol/L (21.0-32.0); CHLORIDE - SERUM 100 mmol/L (98-107); CREATININE - SERUM 0.6 mg/dL (0.6-1.3); GLUCOSE 122 mg/dL (74-106); POTASSIUM - SERUM 4.2 mmol/L (3.5-5.1); SODIUM 138 mmol/L (136-145); UREA NITROGEN 7 mg/dL (7-18); eGFR NON AFRICAN AMERICAN > 90 mL/min (90-120)
[2019-02-10 08:21] VITALS: BP 109/66
[2019-02-10 13:25] VITALS: BP 141/74
--- NOTE | 2019-02-10 14:33 | MORECARE ---
CASE MANAGEMENT DISCHARGE SUMMARY PATIENT: JASON GEORGE UNIT: [id number] ADM DATE: 02/03/19 AGE: 58 : 62 SEX: F ROOM/BED: D.2234 AUTHOR: JANELL,DOC PHYSICIAN: REFERRING PHYSICIAN: KASIA ZENDEJAS MD DATE OF SERVICE: 02/10/19 Discharge Plan Patient Name: JASON GEORGE Facility: [facility]:[place] : 1960 Planned Disposition: Home with Home Health Anticipated Discharge Date: Discharge Date: Expected LOS: Initial Reviewer: [email or web address] Initial Review Date: 02/07/2019 Generated: 02/10/19 3:33 pm Comments DCP- Discharge Planning Updated by [id number]: Nancy Lei on 02/10/19 1:[address] Updated nutrition note faxed to [facility]. I have notified September that she will go home on bolus feeds. CM will continue to follow and assist with discharge planning/needs. DCP- Discharge Planning Updated by [id number]: Nancy Lei on 02/09/19 2:[address] I received a call from [facility] that states patient has used all her home health benefits and will not be eligible for home health. I informed the patient and she states her son and daughter are nurses and will be able to assist her with her tube feedings. She states [facility] has already been here and instructed her on the use of her pump. I have attempted to call September with [facility] about the supplies and feeding and left a message. CM will continue to follow and assist with discharge planning/needs. DCP- Discharge Planning Updated by [id number]: Nancy Lei on 02/08/19 12:[address] Spoke with Yoselin with [facility], they will accept the patient when she is discharged. I spoke with Oneida with [facility] and she will bring feeding supplies to the hospital tomorrow and begin teaching on tube feeding/pump. CM will continue to follow and assist with discharge planning/needs. DCP- Discharge Planning Updated by [email or web address]: Nancy Lei on 02/07/19 2:[address] Patient Name: JASON GEORGE Admission Status: Elective Accout number: [id number] Admission Date: 02-03-2019 : 1960 Admission Diagnosis: Attending: KASIA ZENDEJAS Current LOS: 4 Anticipated DC Date: Planned Disposition: Home with Home Health Primary Insurance: [facility] HEALTH BENEFIT FUND Discharge Planning Comments: CM met with patient to discuss discharge planning/needs. She states that she lives with her . States she is independent with ADL's and IADL's. States she has become weaker since she has been sick and no longer drives, but her family drives her where she needs to go. I discussed the availability of rehab, SNF and home health. She plans on returning home and would like to have [facility] on discharge (she has had them in the past). I also discussed need for an infusion company for her tube feeding supplies. She doesn't have a preference of infusion company. States she would like to use one in [place]. I asked [facility] who they usually use and they state [facility]. Patient is in agreement to use [facility]. I called and spoke to [place] and clinical faxed to them at [phone]. Clinical faxed to [facility] at [phone]. CM will continue to follow and assist with discharge planning/needs. Broadcast Checker: Nancy Lei [facility] - Discharge Planning Initial Assessment Updated by [email or web address]: Nancy Lei on 02/07/19 2:54 pm * Is the patient Alert and Oriented? Yes * How many steps to enter\exit or inside your home? ramp * PCP Dr. Rodriguez in [place] * Pharmacy [facility] in [place] * Preadmission Environment Home with Family * ADLs Partial Dependent * Partial ADLs (Assistance needed) Ambulation * Equipment Nebulizer Rolling Walker Tub Bench Wheelchair * List name and contact numbers for known caregivers / representatives who currently or will assist patient after discharge: Ary Maharaj - DTR - [phone] Dontae George [facility] - [phone] * Verbal permission to speak to the caregivers and representatives has been obtained from the patient. Yes * Community resources currently utilized None * Additional services required to return to the preadmission environment? Yes * Can the patient safely return to the preadmission environment? Yes * Has this patient been hospitalized within the prior 30 days at any hospital? No Coverage Notice Reviewer: [id number] Ismael Lei Notice Issued Date-Time: 02/07/2019 15:11 Notice Type: Patient Choice Letter Notice Delivered To: Patient Relationship to Patient: Self Economist Research Assistant Name: Delivery Method: HAND - Hand Delivered [place] Days: Prior Verbal Notification: Recipient Understood Notice: Yes Recipient Signature: Yes Med Rec Note Co-signed by Attending: Coverage Notice Comment: MICHEL for [facility] infusion company and [facility] Last DP export: 02/09/19 2:43 p Patient Name: JASON GEORGE Page [id number] at 1433 All edits/amendments must be made on the electronic document DICTATION DATE: 02/10/19 1432 HORSEBACK EXCAVATOR: KATH 02/10/19 1432 RPT#: [id number] DC DATE: STATUS: ADM IN [facility] [address] [place] [address] END OF REPORT
[2019-02-10 16:25] VITALS: BP 126/59
--- NOTE | 2019-02-10 17:51 | OP ---
PATIENT NAME: JASON OZUNA MEDICAL RECORD: [id number] :[birth year] LOCATION:[id number] ADMISSION DATE:02/03/19 SURGEON: KASIA ZENDEJAS MD DATE OF OPERATION: 02/10/2019 SURGEON: Kasia Zendejas MD PREOPERATIVE DIAGNOSES: Completely occlusive benign cervical esophageal stricture, dysphagia, severe protein malnutrition, weight loss. POSTOPERATIVE DIAGNOSES: Completely occlusive benign cervical esophageal stricture, dysphagia, severe protein malnutrition, weight loss. PROCEDURE PERFORMED: EGD with esophageal dilatation, fluoroscopic placement of [employer] esophageal stent 18 x 100 mm. ANESTHESIA: General. COMPLICATIONS: None. SPECIMENS: None. Case was contaminated. OPERATIVE COURSE: After consent was obtained, the patient was taken to the operating room and placed in the supine position on the operative table. Next, general anesthesia was given. At this time, a timeout was taken to confirm the correct patient and procedure. A bite block was placed. The gastroscope was inserted through the bite block into the posterior oropharynx under direct endoscopic vision, it was passed posterior to the epiglottis. The esophageal stricture in question was encountered in the cervical esophagus at approximately 10-15 cm. The scope was not able to be traversed. At this time, a Jagwire was placed through the working channel of the scope and under fluoroscopy, the wire was advanced into the lumen of the stomach. Next, the Savary dilators were used to serially dilate the stricture first. This was done in a serial fashion using a 15, 18, 21, and 24-Bulgarian Savary dilator. All dilators were passed over the wire under fluoroscopy. At this time, the dilators were removed. The scope was reinserted. The scope was able to be traversed across the stricture. The scope was advanced through the remaining portion of the esophagus. There appears to be benign esophageal stricture disease extending from the cervical esophagus through the mid thoracic esophagus. The distal esophagus appeared within normal limits. The scope was traversed into the stomach. The stomach was insufflated. The gastrostomy tube was in place in the stomach with the balloon inflated. The scope was retroflexed. There was a small hiatal hernia. The stomach and the mucosa appeared within normal limits. At this time, the scope was slowly and carefully withdrawn, placing again the Jagwire through the working channel scope with noted direct visualization of the stomach. The scope was slowly withdrawn over the wire. Next, at this time, the [employer] Ultraflex 18 x 100 mm stent, once the scope was removed, the stent delivery device was passed over the wire and under direct fluoroscopy. The proximal and distal margins of the esophageal stricture had been marked. The stent was deployed over the stricture with good apposition. At this time, the scope was removed and the procedure was terminated. The patient tolerated the procedure well. At the end of the case, all needle and instrument counts were correct. No complications occurred. The patient was extubated and transferred to the PACU in stable OPERATIVE REPORT [id number] JASON OZUNA condition. TRANSINT:[id number] Voice Confirmation ID: [id number] DOCUMENT ID: [id number] KASIA ZENDEJAS MD at 1751 CC: [id number] DICTATION DATE: 02/10/19 1235 DAIRY QUALITY ASSURANCE OFFICER: 02/10/19 1250 [facility] [place] [id number] [place] [address]
[2019-02-10 20:00] VITALS: BP 124/70
[2019-02-11] VITALS: BP 105/66
[2019-02-11 04:00] VITALS: BP 124/89
[2019-02-11 08:18] LABS: BASOPHILS 0.3 % (0-2); EOSINOPHILS 4.4 % (0-7); HEMATOCRIT 36.2 % (36.0-48.0); HEMOGLOBIN 11.7 g/dL (12-16); IMMATURE GRANULOCYTES 0.2 % (0-5); LYMPHOCYTES 31.4 % (15-50); MCH 31.2 pg (26.0-34.0); MCHC 32.3 g/dL (31.0-37.0); MCV 96.5 fL (80.0-100.0); MEAN PLATELET VOLUME 12.8 fL (7.4-10.4); MONOCYTES 12.2 % (2-11); NEUTROPHILS 51.5 % (40-80); RBC 3.75 10x6/uL (4.00-5.40); RDW 13.1 % (11.5-14.5)
[2019-02-11 08:19] LABS: PLATELET COUNT 182 10x3/uL (130-400); WBC 8.8 10x3/uL (4.8-10.8)
[2019-02-11 08:25] LABS: CALC OSMOLALITY 273 mosm/kg (275-300); CALCIUM 8.8 mg/dL (8.5-10.1); CARBON DIOXIDE 29.6 mmol/L (21.0-32.0); CHLORIDE - SERUM 103 mmol/L (98-107); CREATININE - SERUM 0.6 mg/dL (0.6-1.3); GLUCOSE 120 mg/dL (74-106); POTASSIUM - SERUM 4.7 mmol/L (3.5-5.1); SODIUM 137 mmol/L (136-145); eGFR NON AFRICAN AMERICAN > 90 mL/min (90-120)
[2019-02-11 08:26] LABS: UREA NITROGEN 10 mg/dL (7-18)
[2019-02-11 09:04] VITALS: BP 134/72
[2019-02-11 12:30] VITALS: BP 140/65
[2019-02-11 17:04] VITALS: BP 118/59
[2019-02-11 20:00] VITALS: BP 104/63
[2019-02-12] VITALS: BP 120/69
[2019-02-12 04:00] VITALS: BP 108/64
[2019-02-12 06:35] LABS: BASOPHILS 0.4 % (0-2); EOSINOPHILS 6.5 % (0-7); HEMATOCRIT 33.8 % (36.0-48.0); HEMOGLOBIN 10.8 g/dL (12-16); IMMATURE GRANULOCYTES 0.1 % (0-5); LYMPHOCYTES 31.1 % (15-50); MCH 30.8 pg (26.0-34.0); MCV 96.3 fL (80.0-100.0); MEAN PLATELET VOLUME 12.5 fL (7.4-10.4); MONOCYTES 12.3 % (2-11); NEUTROPHILS 49.6 % (40-80); PLATELET COUNT 161 10x3/uL (130-400); RBC 3.51 10x6/uL (4.00-5.40); RDW 13.2 % (11.5-14.5); WBC 7.1 10x3/uL (4.8-10.8)
[2019-02-12 06:46] LABS: CALC OSMOLALITY 277 mosm/kg (275-300); CALCIUM 8.7 mg/dL (8.5-10.1); CARBON DIOXIDE 30.2 mmol/L (21.0-32.0); CHLORIDE - SERUM 103 mmol/L (98-107); CREATININE - SERUM 0.6 mg/dL (0.6-1.3); GLUCOSE 139 mg/dL (74-106); POTASSIUM - SERUM 4.4 mmol/L (3.5-5.1); SODIUM 139 mmol/L (136-145); eGFR NON AFRICAN AMERICAN > 90 mL/min (90-120)
[2019-02-12 06:47] LABS: UREA NITROGEN 6 mg/dL (7-18)
[2019-02-12 08:35] VITALS: BP 117/59
[2019-02-12 12:31] VITALS: BP 106/67
[2019-02-12 17:42] VITALS: BP 132/63
[2019-02-12 20:00] VITALS: BP 117/66
[2019-02-13] VITALS: BP 103/43
[2019-02-13 04:00] VITALS: BP 110/63
[2019-02-13 05:46] LABS: HEMATOCRIT 35.2 % (36.0-48.0); HEMOGLOBIN 11.4 g/dL (12-16); MCH 31.1 pg (26.0-34.0); MCHC 32.4 g/dL (31.0-37.0); MCV 95.9 fL (80.0-100.0); MEAN PLATELET VOLUME 13.2 fL (7.4-10.4); PLATELET COUNT 175 10x3/uL (130-400); RBC 3.67 10x6/uL (4.00-5.40); WBC 7.7 10x3/uL (4.8-10.8)
[2019-02-13 05:48] LABS: CALC OSMOLALITY 277 mosm/kg (275-300); CALCIUM 8.8 mg/dL (8.5-10.1); CARBON DIOXIDE 28.6 mmol/L (21.0-32.0); CHLORIDE - SERUM 103 mmol/L (98-107); CREATININE - SERUM 0.5 mg/dL (0.6-1.3); GLUCOSE 109 mg/dL (74-106); MAGNESIUM - SERUM 1.8 mg/dL (1.8-2.4); POTASSIUM - SERUM 4.6 mmol/L (3.5-5.1); SODIUM 140 mmol/L (136-145); UREA NITROGEN 7 mg/dL (7-18); eGFR NON AFRICAN AMERICAN > 90 mL/min (90-120)
[2019-02-13 08:05] VITALS: BP 139/67
[2019-02-13 09:02] LABS: EOSINOPHILS 8 % (0-7); LYMPHOCYTES 30 % (15-50); MONOCYTES 12 % (2-11); NEUTROPHILS 50 % (40-80); PLATELET ESTIMATE NORMAL; ROULEAUX OCC
[2019-02-13 12:42] VITALS: BP 116/53
[2019-02-13 17:16] VITALS: BP 118/78
[2019-02-13 19:48] VITALS: BP 108/62
[2019-02-14 00:59] VITALS: BP 108/50
[2019-02-14 05:08] VITALS: BP 169/70
[2019-02-14 06:02] LABS: BASOPHILS 0.5 % (0-2); EOSINOPHILS 5.2 % (0-7); HEMATOCRIT 33.3 % (36.0-48.0); HEMOGLOBIN 10.8 g/dL (12-16); IMMATURE GRANULOCYTES 0.2 % (0-5); LYMPHOCYTES 28.1 % (15-50); MCH 30.9 pg (26.0-34.0); MCHC 32.4 g/dL (31.0-37.0); MCV 95.1 fL (80.0-100.0); MEAN PLATELET VOLUME 12.8 fL (7.4-10.4); MONOCYTES 11.4 % (2-11); NEUTROPHILS 54.6 % (40-80); PLATELET COUNT 186 10x3/uL (130-400); RDW 12.9 % (11.5-14.5); WBC 8.1 10x3/uL (4.8-10.8)
[2019-02-14 06:27] LABS: ALBUMIN 2.5 g/dL (3.4-5.0); ALKALINE PHOSPHATASE 104 U/L (46-116); ALT (SGPT) 13 U/L (10-68); BILIRUBIN - TOTAL 0.33 mg/dL (0.2-1.3); CALC OSMOLALITY 276 mosm/kg (275-300); CARBON DIOXIDE 30.2 mmol/L (21.0-32.0); CHLORIDE - SERUM 104 mmol/L (98-107); CREATININE - SERUM 0.6 mg/dL (0.6-1.3); GLUCOSE 119 mg/dL (74-106); MAGNESIUM - SERUM 1.6 mg/dL (1.8-2.4); POTASSIUM - SERUM 4.3 mmol/L (3.5-5.1); PROTEIN - SERUM 6.2 g/dL (6.4-8.2); SODIUM 139 mmol/L (136-145); UREA NITROGEN 7 mg/dL (7-18); eGFR NON AFRICAN AMERICAN > 90 mL/min (90-120)
[2019-02-14 08:04] VITALS: BP 114/68
--- NOTE | 2019-02-14 09:01 | MORECARE ---
CASE MANAGEMENT DISCHARGE SUMMARY PATIENT: JASON GEORGE UNIT: [id number] ADM DATE: 02/03/19 AGE: 58 : 62 SEX: F ROOM/BED: D.2234 AUTHOR: JANELL,DOC PHYSICIAN: REFERRING PHYSICIAN: KASIA ZENDEJAS MD DATE OF SERVICE: 02/14/19 Discharge Plan Patient Name: JASON GEORGE Facility: [facility]:[place] : 1960 Planned Disposition: Home with Home Health Anticipated Discharge Date: Discharge Date: Expected LOS: Initial Reviewer: [email or web address] Initial Review Date: 02/07/2019 Generated: 02/14/19 10:01 am Comments DCP- Discharge Planning Updated by [email or web address]: Nancy Do on 02/14/19 7:[address] I spoke with September with [facility] and she will be here today to instruct on bolus feeds, order faxed. I spoke with the patient and she states her daughter and son in law are nurses and they know how to do it. She states she has also been instructed by the nurses but is agreeable to more instruction with [facility]. CM will continue to follow and assist with discharge planning/needs. DCP- Discharge Planning Updated by [id number]: Nancy Lei on 02/10/19 1:[address] Updated nutrition note faxed to [facility]. I have notified September that she will go home on bolus feeds. CM will continue to follow and assist with discharge planning/needs. DCP- Discharge Planning Updated by [id number]: Nancy Lei on 02/09/19 2:[address] I received a call from [facility] that states patient has used all her home health benefits and will not be eligible for home health. I informed the patient and she states her son and daughter are nurses and will be able to assist her with her tube feedings. She states [facility] has already been here and instructed her on the use of her pump. I have attempted to call September with [facility] about the supplies and feeding and left a message. CM will continue to follow and assist with discharge planning/needs. DCP- Discharge Planning Updated by [id number]: Nancy Lei on 02/08/19 12:[address] Spoke with Yoselin with [facility], they will accept the patient when she is discharged. I spoke with Oneida with [facility] and she will bring feeding supplies to the hospital tomorrow and begin teaching on tube feeding/pump. CM will continue to follow and assist with discharge planning/needs. DCP- Discharge Planning Updated by [email or web address]: Nancy Do on 02/07/19 2:[address] Patient Name: JASON GEORGE Admission Status: Elective Accout number: [id number] Admission Date: 02-03-2019 : 1960 Admission Diagnosis: Attending: KASIA ZENDEJAS Current LOS: 4 Anticipated DC Date: Planned Disposition: Home with Home Health Primary Insurance: [employer]ALTH BENEFIT FUND Discharge Planning Comments: CM met with patient to discuss discharge planning/needs. She states that she lives with her . States she is independent with ADL's and IADL's. States she has become weaker since she has been sick and no longer drives, but her family drives her where she needs to go. I discussed the availability of rehab, SNF and home health. She plans on returning home and would like to have [facility] on discharge (she has had them in the past). I also discussed need for an infusion company for her tube feeding supplies. She doesn't have a preference of infusion company. States she would like to use one in [place]. I asked [facility] who they usually use and they state [facility]. Patient is in agreement to use [facility]. I called and spoke to [place] and clinical faxed to them at [phone]. Clinical faxed to [facility] at [phone]. CM will continue to follow and assist with discharge planning/needs. Tester Waste Disposal Leakage: Nancy Lei DCPIA - Discharge Planning Initial Assessment Updated by [email or web address]: Nancy Do on 02/07/19 2:54 pm * Is the patient Alert and Oriented? Yes * How many steps to enter\exit or inside your home? ramp * PCP Dr. Rodriguez in [place] * Pharmacy [facility] in [place] * Preadmission Environment Home with Family * ADLs Partial Dependent * Partial ADLs (Assistance needed) Ambulation * Equipment Nebulizer Rolling Walker Tub Bench Wheelchair * List name and contact numbers for known caregivers / representatives who currently or will assist patient after discharge: Ary Maharaj - DTR - [phone] Dontae George [facility] - [phone] * Verbal permission to speak to the caregivers and representatives has been obtained from the patient. Yes * Community resources currently utilized None * Additional services required to return to the preadmission environment? Yes * Can the patient safely return to the preadmission environment? Yes * Has this patient been hospitalized within the prior 30 days at any hospital? No Coverage Notice Reviewer: [email or web address] Ismael Lei Notice Issued Date-Time: 02/07/2019 15:11 Notice Type: Patient Choice Letter Notice Delivered To: Patient Relationship to Patient: Self Tank Terminal Gauger Name: Delivery Method: HAND - Hand Delivered [place] Days: Prior Verbal Notification: Recipient Understood Notice: Yes Recipient Signature: Yes Med Rec Note Co-signed by Attending: Coverage Notice Comment: MICHEL for [facility] infusion company and [facility] Last DP export: 02/10/19 1:33 p Patient Name: JASON GEORGE Page [id number] at 0901 All edits/amendments must be made on the electronic document DICTATION DATE: 02/14/19900 DOG SITTER: KATH 02/14/19900 RPT#: [id number] DC DATE: STATUS: ADM IN [facility] [address] [place] [address] END OF REPORT
--- NOTE | 2019-02-14 10:02 | MORECARE ---
CASE MANAGEMENT DISCHARGE SUMMARY PATIENT: JASON GEORGE UNIT: [id number] ADM DATE: 02/03/19 AGE: 58 : 62 SEX: F ROOM/BED: D.2234 AUTHOR: JANELL,DOC PHYSICIAN: REFERRING PHYSICIAN: KASIA ZENDEJAS MD DATE OF SERVICE: 02/14/19 Discharge Plan Patient Name: JASON GEORGE Facility: [facility] : 1960 Planned Disposition: Home with Home Health Anticipated Discharge Date: Discharge Date: Expected LOS: Initial Reviewer: [email or web address] Initial Review Date: 02/07/2019 Generated: 02/14/19 11:01 am Comments DCP- Discharge Planning Updated by [email or web address]: Nancy Do on 02/14/19 7:[address] I spoke with September with [facility] and she will be here today to instruct on bolus feeds, order faxed. I spoke with the patient and she states her daughter and son in law are nurses and they know how to do it. She states she has also been instructed by the nurses but is agreeable to more instruction with [facility]. CM will continue to follow and assist with discharge planning/needs. DCP- Discharge Planning Updated by [id number]: Nancy Lei on 02/10/19 1:[address] Updated nutrition note faxed to [facility]. I have notified September that she will go home on bolus feeds. CM will continue to follow and assist with discharge planning/needs. DCP- Discharge Planning Updated by [id number]: Nancy Lei on 02/09/19 2:[address] I received a call from [facility] that states patient has used all her home health benefits and will not be eligible for home health. I informed the patient and she states her son and daughter are nurses and will be able to assist her with her tube feedings. She states [facility] has already been here and instructed her on the use of her pump. I have attempted to call September with [facility] about the supplies and feeding and left a message. CM will continue to follow and assist with discharge planning/needs. DCP- Discharge Planning Updated by [email or web address]: Nancy Lei on 02/08/19 12:[address] Spoke with Yoselin with [facility], they will accept the patient when she is discharged. I spoke with Oneida with [facility] and she will bring feeding supplies to the hospital tomorrow and begin teaching on tube feeding/pump. CM will continue to follow and assist with discharge planning/needs. DCP- Discharge Planning Updated by [id number]: Nancy Do on 02/07/19 2:[address] Patient Name: JASON GEORGE Admission Status: Elective Accout number: [id number] Admission Date: 02-03-2019 : 1960 Admission Diagnosis: Attending: KASIA ZENDEJAS Current LOS: 4 Anticipated DC Date: Planned Disposition: Home with Home Health Primary Insurance: [employer] BENEFIT FUND Discharge Planning Comments: CM met with patient to discuss discharge planning/needs. She states that she lives with her . States she is independent with ADL's and IADL's. States she has become weaker since she has been sick and no longer drives, but her family drives her where she needs to go. I discussed the availability of rehab, SNF and home health. She plans on returning home and would like to have [facility] on discharge (she has had them in the past). I also discussed need for an infusion company for her tube feeding supplies. She doesn't have a preference of infusion company. States she would like to use one in [place]. I asked [facility] who they usually use and they state [facility]. Patient is in agreement to use [facility]. I called and spoke to [place] and clinical faxed to them at [phone]. Clinical faxed to [facility] at [phone]. CM will continue to follow and assist with discharge planning/needs. Final Inspector And Tester: Nancy Lie DCPIA - Discharge Planning Initial Assessment Updated by [email or web address]: Nancy Do on 02/07/19 2:54 pm * Is the patient Alert and Oriented? Yes * How many steps to enter\exit or inside your home? ramp * PCP Dr. Rodriguez in [place] * Pharmacy [facility] in [place] * Preadmission Environment Home with Family * ADLs Partial Dependent * Partial ADLs (Assistance needed) Ambulation * Equipment Nebulizer Rolling Walker Tub Bench Wheelchair * List name and contact numbers for known caregivers / representatives who currently or will assist patient after discharge: Ary Maharaj DTR - [phone] Dontae George [facility] - [phone] * Verbal permission to speak to the caregivers and representatives has been obtained from the patient. Yes * Community resources currently utilized None * Additional services required to return to the preadmission environment? Yes * Can the patient safely return to the preadmission environment? Yes * Has this patient been hospitalized within the prior 30 days at any hospital? No Coverage Notice Reviewer: [id number] Ismael Lei Notice Issued Date-Time: 02/07/2019 15:11 Notice Type: Patient Choice Letter Notice Delivered To: Patient Relationship to Patient: Self Matting Press Tender Name: Delivery Method: HAND - Hand Delivered [place] Days: Prior Verbal Notification: Recipient Understood Notice: Yes Recipient Signature: Yes Med Rec Note Co-signed by Attending: Coverage Notice Comment: MICHEL for [facility] infusion company and [facility] Last DP export: 02/14/19 8:01 am Patient Name: JASON GEORGE Page [phone] at 1002 All edits/amendments must be made on the electronic document DICTATION DATE: 02/14/19 1001 PRELIMINARY SCHOOL PSYCHOLOGIST: KATH 02/14/19 1001 RPT#: [id number] DC DATE: STATUS: ADM IN [facility] [address] [place] [address] END OF REPORT
--- NOTE | 2019-02-14 11:04 | MORECARE ---
CASE MANAGEMENT DISCHARGE SUMMARY PATIENT: JASON GEORGE UNIT: [id number] ADM DATE: 02/03/19 AGE: 58 : 62 SEX: F ROOM/BED: D.2234 AUTHOR: JANELL,DOC PHYSICIAN: REFERRING PHYSICIAN: KASIA ZENDEJAS MD DATE OF SERVICE: 02/14/19 Discharge Plan Patient Name: JASON GEORGE Facility: [facility]:[place] : 1960 Planned Disposition: Home with Home Health Anticipated Discharge Date: Discharge Date: Expected LOS: Initial Reviewer: [email or web address] Initial Review Date: 02/07/2019 Generated: 02/14/19 12:04 pm Comments DCP- Discharge Planning Updated by [email or web address]: Nancy Lei on 02/14/19 10:[address] Received order for discharge. [facility] is here for bolus feed instruction. She has used all of her benefits for home health, so is not eligible for home health. Patient states her daughter and son in law are both nurses and they know how to take care of her G tube and feedings. No other needs identified. I have asked the nurse to supply enough cans of tube feeding for today, although [facility] states they will deliver the supplies to her home today. Home today with family. DCP- Discharge Planning Updated by [id number]: Nancy Lei on 02/14/19 7:[address] I spoke with September with [facility] and she will be here today to instruct on bolus feeds, order faxed. I spoke with the patient and she states her daughter and son in law are nurses and they know how to do it. She states she has also been instructed by the nurses but is agreeable to more instruction with [facility]. CM will continue to follow and assist with discharge planning/needs. DCP- Discharge Planning Updated by [email or web address]: Nancy Lei on 02/10/19 1:[address] Updated nutrition note faxed to [facility]. I have notified September that she will go home on bolus feeds. CM will continue to follow and assist with discharge planning/needs. DCP- Discharge Planning Updated by [email or web address]: Nancy Lei on 02/09/19 2:[address] I received a call from [facility] that states patient has used all her home health benefits and will not be eligible for home health. I informed the patient and she states her son and daughter are nurses and will be able to assist her with her tube feedings. She states [facility] has already been here and instructed her on the use of her pump. I have attempted to call September with [facility] about the supplies and feeding and left a message. CM will continue to follow and assist with discharge planning/needs. DCP- Discharge Planning Updated by [email or web address]: Nancy Lei on 02/08/19 12:[address] Spoke with Yoselin with [facility], they will accept the patient when she is discharged. I spoke with September with [facility] and she will bring feeding supplies to the hospital tomorrow and begin teaching on tube feeding/pump. CM will continue to follow and assist with discharge planning/needs. DCP- Discharge Planning Updated by [id number]: Nancy Lei on 02/07/19 2:[address] Patient Name: JASON GEORGE Admission Status: Elective Accout number: [id number] Admission Date: 02-03-2019 : 1960 Admission Diagnosis: Attending: KASIA ZENDEJAS Current LOS: 4 Anticipated DC Date: Planned Disposition: Home with Home Health Primary Insurance: [facility] HEALTH BENEFIT FUND Discharge Planning Comments: CM met with patient to discuss discharge planning/needs. She states that she lives with her . States she is independent with ADL's and IADL's. States she has become weaker since she has been sick and no longer drives, but her family drives her where she needs to go. I discussed the availability of rehab, SNF and home health. She plans on returning home and would like to have [facility] on discharge (she has had them in the past). I also discussed need for an infusion company for her tube feeding supplies. She doesn't have a preference of infusion company. States she would like to use one in [place]. I asked [facility] who they usually use and they state [facility]. Patient is in agreement to use [facility]. I called and spoke to [place] and clinical faxed to them at [phone]. Clinical faxed to [facility] at [phone]. CM will continue to follow and assist with discharge planning/needs. Roll Changer: aNncy Do DCPIA - Discharge Planning Initial Assessment Updated by [email or web address]: Nancy Lei on 02/07/19 2:54 pm * Is the patient Alert and Oriented? Yes * How many steps to enter\exit or inside your home? ramp * PCP Dr. Rodriguez in [place] * [facility] in [place] * Preadmission Environment Home with Family * ADLs Partial Dependent * Partial ADLs (Assistance needed) Ambulation * Equipment Nebulizer Rolling Walker Tub Bench Wheelchair * List name and contact numbers for known caregivers / representatives who currently or will assist patient after discharge: Ary Maharaj - DTR - [phone] Dontae George [facility] - [phone] * Verbal permission to speak to the caregivers and representatives has been obtained from the patient. Yes * Community resources currently utilized None * Additional services required to return to the preadmission environment? Yes * Can the patient safely return to the preadmission environment? Yes * Has this patient been hospitalized within the prior 30 days at any hospital? No Coverage Notice Reviewer: [id number] - Nancy Do Notice Issued Date-Time: 02/07/2019 15:11 Notice Type: Patient Choice Letter Notice Delivered To: Patient Relationship to Patient: Self Production Specialist Name: Delivery Method: HAND - Hand Delivered [place] Days: Prior Verbal Notification: Recipient Understood Notice: Yes Recipient Signature: Yes Med Rec Note Co-signed by Attending: Coverage Notice Comment: MICHEL for [facility] infusion company and [facility] Last DP export: 02/14/19 9:01 am Patient Name: JASON GEORGE Page [id number] at 1104 All edits/amendments must be made on the electronic document DICTATION DATE: 02/14/19 1104 SOCIAL INSURANCE ADMINISTRATOR: KATH 02/14/19 1104 RPT#: [id number] DC DATE: STATUS: ADM IN [facility] [address] [place] [address] END OF REPORT
--- NOTE | 2019-02-15 16:05 | MORECARE ---
CASE MANAGEMENT DISCHARGE SUMMARY PATIENT: JASON GEORGE UNIT: [id number] ADM DATE: 02/03/19 AGE: 58 : 62 SEX: F ROOM/BED: D.2234 AUTHOR: JANELL,DOC PHYSICIAN: REFERRING PHYSICIAN: KASIA ZENDEJAS MD DATE OF SERVICE: 02/15/19 Discharge Plan Patient Name: JASON GEORGE Facility: [facility]:[place] : 1960 Planned Disposition: Home with Home Health Anticipated Discharge Date: Discharge Date: 02/14/2019 Expected LOS: 0 Initial Reviewer: [email or web address] Initial Review Date: 02/07/2019 Generated: 02/15/19 5:05 pm Comments DCP- Discharge Planning Updated by [email or web address]: Nancy Lei on 02/14/19 10:[address] Received order for discharge. [facility] is here for bolus feed instruction. She has used all of her benefits for home health, so is not eligible for home health. Patient states her daughter and son in law are both nurses and they know how to take care of her G tube and feedings. No other needs identified. I have asked the nurse to supply enough cans of tube feeding for today, although [facility] states they will deliver the supplies to her home today. Home today with family. DCP- Discharge Planning Updated by [id number]: Nancy Lie on 02/14/19 7:[address] I spoke with September with [facility] and she will be here today to instruct on bolus feeds, order faxed. I spoke with the patient and she states her daughter and son in law are nurses and they know how to do it. She states she has also been instructed by the nurses but is agreeable to more instruction with [facility]. CM will continue to follow and assist with discharge planning/needs. DCP- Discharge Planning Updated by [id number]: Nancy Lei on 02/10/19 1:[address] Updated nutrition note faxed to [facility]. I have notified September that she will go home on bolus feeds. CM will continue to follow and assist with discharge planning/needs. DCP- Discharge Planning Updated by [email or web address]: Nancy Lei on 02/09/19 2:[address] I received a call from [facility] that states patient has used all her home health benefits and will not be eligible for home health. I informed the patient and she states her son and daughter are nurses and will be able to assist her with her tube feedings. She states [facility] has already been here and instructed her on the use of her pump. I have attempted to call September with [facility] about the supplies and feeding and left a message. CM will continue to follow and assist with discharge planning/needs. DCP- Discharge Planning Updated by [email or web address]: Nancy Lei on 02/08/19 12:[address] Spoke with Yoselin with [facility], they will accept the patient when she is discharged. I spoke with September with [facility] and she will bring feeding supplies to the hospital tomorrow and begin teaching on tube feeding/pump. CM will continue to follow and assist with discharge planning/needs. DCP- Discharge Planning Updated by [id number]: Nancy Lei on 02/07/19 2:[address] Patient Name: JASON GEORGE Admission Status: Elective Accout number: [id number] Admission Date: 02-03-2019 : 1960 Admission Diagnosis: Attending: KASIA ZENDEJAS Current LOS: 4 Anticipated DC Date: Planned Disposition: Home with Home Health Primary Insurance: [facility] HEALTH BENEFIT FUND Discharge Planning Comments: CM met with patient to discuss discharge planning/needs. She states that she lives with her . States she is independent with ADL's and IADL's. States she has become weaker since she has been sick and no longer drives, but her family drives her where she needs to go. I discussed the availability of rehab, SNF and home health. She plans on returning home and would like to have [facility] on discharge (she has had them in the past). I also discussed need for an infusion company for her tube feeding supplies. She doesn't have a preference of infusion company. States she would like to use one in [place]. I asked [facility] who they usually use and they state [facility]. Patient is in agreement to use [facility]. I called and spoke to [place] and clinical faxed to them at [phone]. Clinical faxed to [facility] at [phone]. CM will continue to follow and assist with discharge planning/needs. Vulcanizer Operator: Nancy Lei DCPIA - Discharge Planning Initial Assessment Updated by [email or web address]: Nancy Lei on 02/07/19 2:54 pm * Is the patient Alert and Oriented? Yes * How many steps to enter\exit or inside your home? ramp * PCP Dr. Rodriguez in [place] * Pharmacy [facility] in [place] * Preadmission Environment Home with Family * ADLs Partial Dependent * Partial ADLs (Assistance needed) Ambulation * Equipment Nebulizer Rolling Walker Tub Bench Wheelchair * List name and contact numbers for known caregivers / representatives who currently or will assist patient after discharge: Ary Maharaj - DTR - [phone] Dontae George [facility] - [phone] * Verbal permission to speak to the caregivers and representatives has been obtained from the patient. Yes * Community resources currently utilized None * Additional services required to return to the preadmission environment? Yes * Can the patient safely return to the preadmission environment? Yes * Has this patient been hospitalized within the prior 30 days at any hospital? No Coverage Notice Reviewer: [id number] - Nancy Lei Notice Issued Date-Time: 02/07/2019 15:11 Notice Type: Patient Choice Letter Notice Delivered To: Patient Relationship to Patient: Self Educational Manager Name: Delivery Method: HAND - Hand Delivered [place] Days: Prior Verbal Notification: Recipient Understood Notice: Yes Recipient Signature: Yes Med Rec Note Co-signed by Attending: Coverage Notice Comment: MICHEL for [facility] infusion company and [facility] Last DP export: 02/14/19 10:04 am Patient Name: JASON GEORGE Page 10980 at 1605 All edits/amendments must be made on the electronic document DICTATION DATE: 02/15/19 1605 APPAREL FASHION DESIGNER: KATH 02/15/19 1605 RPT#: [id number] DC DATE:02/14/19 STATUS: DIS IN [facility] [address] [place] [address] END OF REPORT
[2019-03-02] MEDS ORDERED: HYDROCODON-ACE1 EAC7 PO (09:51)
== END 2019-02-14 12:27 | disposition home health service (06) | DRG 391 ==
LOC: D.MS 10:51
PROVIDERS: Family Medicine; Internal Medicine Nephrology; ADMIT Surgery; ATTEND Surgery
PROC: 05HY33Z Insertion of Infusion Device into Upper Vein, Percutaneous Approach (ICD-10-PCS; 2019-02-03)
PROC: 0DH63UZ Insertion of Feeding Device into Stomach, Percutaneous Approach (ICD-10-PCS; principal; 2019-02-06 14:15)
PROC: 0D728DZ Dilation of Middle Esophagus with Intraluminal Device, Via Natural or Artificial Opening Endoscopic (ICD-10-PCS; 2019-02-10)
PROC: 0D718DZ Dilation of Upper Esophagus with Intraluminal Device, Via Natural or Artificial Opening Endoscopic (ICD-10-PCS; 2019-02-10)
DX: K22.2 Esophageal obstruction (principal); E43 Unspecified severe protein-calorie malnutrition; Z68.41 Body mass index [BMI] 40.0-44.9, adult; R13.19 Other dysphagia; K22.0 Achalasia of cardia; I10 Essential (primary) hypertension; K21.9 Gastro-esophageal reflux disease without esophagitis; E66.01 Morbid (severe) obesity due to excess calories; M19.90 Unspecified osteoarthritis, unspecified site

== ENCOUNTER 2019-02-24 17:51 | Inpatient (IN) | payer OTHER ==
[~2019-02-24] VITALS: Ht 157.5 cm; Wt 102.5 kg
[~2019-02-24 17:51] MED LIST changes: +VALIUM 2 MG TAB2 MG PO
[2019-02-24 18:49] LABS: BASOPHILS 0.3 % (0-2); HEMATOCRIT 47.3 % (36.0-48.0); IMMATURE GRANULOCYTES 0.1 % (0-5); LYMPHOCYTES 16.9 % (15-50); MCH 30.7 pg (26.0-34.0); MCHC 33.8 g/dL (31.0-37.0); MCV 90.8 fL (80.0-100.0); MEAN PLATELET VOLUME 12.5 fL (7.4-10.4); MONOCYTES 7.7 % (2-11); RBC 5.21 10x6/uL (4.00-5.40); RDW 12.8 % (11.5-14.5); WBC 11.2 10x3/uL (4.8-10.8)
[2019-02-24 18:50] LABS: PLATELET COUNT 316 10x3/uL (130-400)
[2019-02-24 19:05] LABS: ALBUMIN 3.8 g/dL (3.4-5.0); ALKALINE PHOSPHATASE 732 U/L (46-116); ALT (SGPT) 140 U/L (10-68); BILIRUBIN - TOTAL 0.56 mg/dL (0.2-1.3); CALC OSMOLALITY 268 mosm/kg (275-300); CALCIUM 9.6 mg/dL (8.5-10.1); CARBON DIOXIDE 25.9 mmol/L (21.0-32.0); CHLORIDE - SERUM 96 mmol/L (98-107); CREATININE - SERUM 0.8 mg/dL (0.6-1.3); GLUCOSE 133 mg/dL (74-106); POTASSIUM - SERUM 3.7 mmol/L (3.5-5.1); PROTEIN - SERUM 8.1 g/dL (6.4-8.2); SODIUM 134 mmol/L (136-145); UREA NITROGEN 10 mg/dL (7-18); eGFR NON AFRICAN AMERICAN 78 mL/min (90-120)
[2019-02-24 19:08] LABS: AMYLASE - SERUM 54 U/L (25-115); LIPASE 516 U/L (73-393)
[2019-02-24 19:13] LABS: TROPONIN-I < 0.017 ng/mL (0.000-0.060)
[2019-02-24 21:24] VITALS: BP 141/87
--- NOTE | 2019-02-24 22:10 | NUR ---
BREVING AT BEDSIDE TO DUE GASTRIC OCCULT AND FLUSH PEG TUBE.
[2019-02-24 22:26] VITALS: BP 129/68
[2019-02-25] VITALS (8 sets, daily range): BP systolic 109–154; BP diastolic 61–80; Ht 157.5 cm; Wt 102.5 kg
--- NOTE | 2019-02-25 03:55 | NUR ---
PT TRANSPORTED TO FLOOR AT THIS TIME.
[2019-02-25] MEDS ORDERED: POLY-VI-SOL W/I50 ML PO (04:26)
--- NOTE | 2019-02-25 04:57 | NUR ---
PT ARRIVED ON UNIT AT 0408 VIA WHEELCHAIR ESCORTED BY ER NURSE. ORIENTED TO ROOM AND CALL LIGHT. IV TO LEFT FA PATENT WITH NS INFUSING AT 100 ML/HR AND PROTONIS INFUSING AT 10. IV TO RIGHT FA PATENT WITH ZOFRAN INFUSING AT 4.7 ML/HR. APPLIED DRESSING AROUND PEG TUBE IN LUQ. WILL MONITOR FOR NEEDS.
--- NOTE | 2019-02-25 04:58 | NUR ---
ADMISSION ASSESSMENT AND HISTORY COMPLETE. HOME MEDS RECONCILED FOR MD REVIEW IN AM.
[2019-02-25 05:15] LABS: BASOPHILS 0.1 % (0-2); EOSINOPHILS 0 % (0-7); HEMATOCRIT 41.3 % (36.0-48.0); HEMOGLOBIN 13.6 g/dL (12-16); IMMATURE GRANULOCYTES 0.1 % (0-5); LYMPHOCYTES 15.9 % (15-50); MCH 30.8 pg (26.0-34.0); MCHC 32.9 g/dL (31.0-37.0); MEAN PLATELET VOLUME 12.7 fL (7.4-10.4); MONOCYTES 1.4 % (2-11); NEUTROPHILS 82.5 % (40-80); PLATELET COUNT 284 10x3/uL (130-400); RBC 4.41 10x6/uL (4.00-5.40); RDW 12.9 % (11.5-14.5)
[2019-02-25 05:17] LABS: MCV 93.7 fL (80.0-100.0); WBC 7.2 10x3/uL (4.8-10.8)
[2019-02-25 05:29] LABS: CALC OSMOLALITY 269 mosm/kg (275-300); CALCIUM 8.9 mg/dL (8.5-10.1); CARBON DIOXIDE 21.5 mmol/L (21.0-32.0); CHLORIDE - SERUM 101 mmol/L (98-107); CREATININE - SERUM 0.7 mg/dL (0.6-1.3); GLUCOSE 155 mg/dL (74-106); MAGNESIUM - SERUM 1.6 mg/dL (1.8-2.4); PHOSPHOROUS 4.3 mg/dL (2.5-4.9); SODIUM 134 mmol/L (136-145); UREA NITROGEN 11 mg/dL (7-18); eGFR NON AFRICAN AMERICAN > 90 mL/min (90-120)
[2019-02-25 05:37] LABS: POTASSIUM - SERUM 4.4 mmol/L (3.5-5.1)
--- NOTE | 2019-02-25 08:03 | NUR ---
PT RESTING IN BED NO SIGNS OF DISTRESS. IV TO LEFT FORAARM AND RIGHT FORARM PATENT NO REDNESS OR TENDERENESS. HAS PEG TUBE CLAMPED. COMPLAINS OF PAIN. MEDICATION ALREADY GIVEN. DENIES ANY FURHTER NEED AT THIS TIME. CALL LIGHT IN REACH. BED LOW POSITION. NO FAMILY AT BEDSIDE AT THIS TIME.
[2019-02-25 13:22] LABS: INR 1.16 (0.85-1.17); PROTIME 14.2 SECONDS (11.6-15.0)
[2019-02-25 18:32] LABS: APPEARANCE CLEAR (CLEAR); COLOR YELLOW (YELLOW); GLUCOSE NEGATIVE (NEGATIVE); NITRITE NEGATIVE (NEGATIVE); PROTEIN TRACE mg/dL (NEGATIVE)
[2019-02-25 18:33] LABS: BILIRUBIN NEGATIVE (NEGATIVE); KETONE MODERATE mg/dL (NEGATIVE); UROBILINOGEN NORMAL (NORMAL)
[2019-02-25 18:34] LABS: BACTERIA FEW /hpf (NONE SEEN); EPITHELIAL CELLS 0-5 /hpf (0-5); RED CELLS - URINE 0-5 /hpf (0-5); WHITE CELLS - URINE OCC /hpf (0-5)
[2019-02-25 18:35] LABS: HYALINE CAST 0-5 /lpf (NONE SEEN); MUCUS >1+ /lpf (NONE SEEN)
--- NOTE | 2019-02-25 19:00 | NUR ---
BEDSIDE REPORT RECEIVED AND CARE OF PT ASSUMED. PT LYING IN LOW JACOBSON'S POSITION WATCHING TV. IV TO LEFT FA PATENT WITH NS INFUSING AT 100 ML/HR AND PROTONIX INFUSING AT 10 ML/HR. IV TO RIGHT FA PATENT WITH ZOFRAN INFUSING AT 4.7 ML/HR. PEG TUBE CLAMPLED. NPO STATUS CONTINUED.
--- NOTE | 2019-02-25 19:54 | NUR ---
HS MEDICATIONS GIVEN. WILL CONTINUE TO MONTIOR FOR NEEDS.
--- NOTE | 2019-02-25 20:15 | NUR ---
PROVIDED ORAL CARE KIT FOR PT AND TEACHING PROVIDED ON USE.
--- NOTE | 2019-02-25 22:10 | NUR ---
GAVE DILAUDID 0.5 MG IVP PER REQUEST FOR PAIN, PER PRN ORDER. WILL CONTINUE TO MONITOR FOR NEEDS.
[2019-02-26] VITALS: BP 147/59
[2019-02-26 04:00] VITALS: BP 162/66
[2019-02-26 06:43] LABS: HEMATOCRIT 35.1 % (36.0-48.0); HEMOGLOBIN 11.6 g/dL (12-16); LYMPHOCYTES 30.2 % (15-50); MCH 31.2 pg (26.0-34.0); MCV 94.4 fL (80.0-100.0); MEAN PLATELET VOLUME 11.8 fL (7.4-10.4); NEUTROPHILS 58.3 % (40-80); RBC 3.72 10x6/uL (4.00-5.40); RDW 12.3 % (11.5-14.5); WBC 6.9 10x3/uL (4.8-10.8)
[2019-02-26 06:44] LABS: PLATELET COUNT 202 10x3/uL (130-400)
[2019-02-26 07:16] LABS: ALKALINE PHOSPHATASE 353 U/L (46-116); BILIRUBIN - TOTAL 0.32 mg/dL (0.2-1.3); CALCIUM 8.7 mg/dL (8.5-10.1); CARBON DIOXIDE 18.1 mmol/L (21.0-32.0); CHLORIDE - SERUM 106 mmol/L (98-107); PROTEIN - SERUM 6.3 g/dL (6.4-8.2); SODIUM 137 mmol/L (136-145); UREA NITROGEN 13 mg/dL (7-18)
[2019-02-26 07:17] LABS: ALBUMIN 2.7 g/dL (3.4-5.0); ALT (SGPT) 52 U/L (10-68); CALC OSMOLALITY 273 mosm/kg (275-300); CREATININE - SERUM 0.5 mg/dL (0.6-1.3); GLUCOSE 93 mg/dL (74-106); POTASSIUM - SERUM 3.6 mmol/L (3.5-5.1); eGFR NON AFRICAN AMERICAN > 90 mL/min (90-120)
--- NOTE | 2019-02-26 10:24 | NUR ---
PT RESTING IN BED. NO SIGNS OF DISTRESS. IV TO RIGHT AND LEFT FORARM PATENT NO REDNESS OR TENDERNESS. HAS PEG TUBE CLAMPED. COMPLAINS OF PAIN. MEDICATIONS GIVEN. DENIES ANY FURTHER NEED AT THIS TIME. CALL LIGHT IN REACH. FAMILY AT BEDSIDE.
[2019-02-26 12:18] VITALS: BP 119/80
[2019-02-26 17:05] VITALS: BP 142/63
--- NOTE | 2019-02-26 17:45 | NUR ---
REPORT RECEIVED AND CARE OF PT ASSUMED. PT LYING IN MID JACOBSON'S POSITION. IV TO LEFT FA PATENT WITH NS INFUSING AT 100 ML/HR, AND PROTONIX INFUSING AT 10 ML/HR. IV TO RIGHT FA PATENT WITH ZOFRAN INFUSING AT 4.7 ML/HR. PEG TUBE CLAMPED. WILL MONITOR FOR NEEDS.
--- NOTE | 2019-02-26 18:35 | NUR ---
I have reviewed this patient and I concur with the Shift Assessment completed by the Licensed Practical Nurse today this shift.
--- NOTE | 2019-02-26 18:40 | NUR ---
GAVE DILAUDID 0.5 MG IVP PER PT REQUEST FOR PAIN AT LEVEL 9/10. WILL MONITOR FOR EFFECTIVENESS.
--- NOTE | 2019-02-26 19:15 | NUR ---
FLUSHED PEG TUBE WITH 30 ML WATER. WILL CONTINUE TO MONITOR FOR NEEDS.
[2019-02-26 20:00] VITALS: BP 160/75
[2019-02-27] VITALS: BP 159/69
--- NOTE | 2019-02-27 03:05 | NUR ---
GAVE DILAUDID 0.5 MG IVP FOR C/O PAIN. ALSO GAVE HOT PACK FOR PAIN IN NECK. WILL CONTINUE TO MONITOR FOR NEEDS.
[2019-02-27 04:00] VITALS: BP 147/66
[2019-02-27 05:45] LABS: BASOPHILS 0.5 % (0-2); EOSINOPHILS 5.1 % (0-7); HEMATOCRIT 32.9 % (36.0-48.0); HEMOGLOBIN 10.7 g/dL (12-16); IMMATURE GRANULOCYTES 0.2 % (0-5); LYMPHOCYTES 32.8 % (15-50); MCHC 32.5 g/dL (31.0-37.0); MEAN PLATELET VOLUME 12.3 fL (7.4-10.4); MONOCYTES 10.5 % (2-11); NEUTROPHILS 50.9 % (40-80); PLATELET COUNT 210 10x3/uL (130-400); RBC 3.57 10x6/uL (4.00-5.40); RDW 12.5 % (11.5-14.5); WBC 5.7 10x3/uL (4.8-10.8)
[2019-02-27 05:47] LABS: ALBUMIN 2.4 g/dL (3.4-5.0); ALKALINE PHOSPHATASE 276 U/L (46-116); BILIRUBIN - TOTAL 0.33 mg/dL (0.2-1.3); CALCIUM 8.1 mg/dL (8.5-10.1); CARBON DIOXIDE 22.1 mmol/L (21.0-32.0); CHLORIDE - SERUM 108 mmol/L (98-107); CREATININE - SERUM 0.4 mg/dL (0.6-1.3); GLUCOSE 80 mg/dL (74-106); POTASSIUM - SERUM 3.6 mmol/L (3.5-5.1); PROTEIN - SERUM 5.7 g/dL (6.4-8.2); SODIUM 140 mmol/L (136-145); eGFR NON AFRICAN AMERICAN > 90 mL/min (90-120)
[2019-02-27 05:52] LABS: MCV 92.2 fL (80.0-100.0)
[2019-02-27 05:54] LABS: ALT (SGPT) 35 U/L (10-68); CALC OSMOLALITY 275 mosm/kg (275-300); UREA NITROGEN 7 mg/dL (7-18)
--- NOTE | 2019-02-27 07:25 | NUR ---
PT RESTING IN BED WITH HOB ELEVATED 35 DEGREES. NO ACUTE DISTRESS NOTED AT THIS TIME. REPORTS PAIN 10/ AT THIS TIME, PAIN MEDICATIONS ADMINISTERED. IV TO LEFT FOREARM WIHT NS @ 100ML/HR, PROTONIX @ 10ML/HR INFUSING VIA PUMP. SITE WITHOUT REDNESS OR EDEMA. IV TO RIGHT FOREARM WITH ZOFRAN @ 4.7ML/HR INFUSING VIA PUMP. SITE WITHOUT REDNESS OR EDEMA. PEG INTACT, BUT CLAMPED. DENIES FURTHER NEEDS AT THIS TIME. CL WITHIN REACH. ENCOURAGED TO CALL WITH NEEDS. CONTINUE POC
[2019-02-27 07:59] VITALS: BP 150/62
[2019-02-27 12:45] VITALS: BP 168/77
[2019-02-27 15:37] VITALS: BP 171/72
--- NOTE | 2019-02-27 19:35 | NUR ---
LYING IN BED. ALERT AND ORIENTED X4. RESP EVEN AND NONLABORED. PEG TUBE TO LUQ IS CLAMPED. BS PRESENT X4 QUADS. REPORTS PAIN IN THROAT AND ABD 8. PROCAL @ 75 ML/HR INFUSING IN LT FOREARM. SALINE LOCK NOTED TO RT FOREARM. NOT TIME FOR PAIN MED YET. AMBULATORY. CL IN REACH.
[2019-02-27 19:54] VITALS: BP 160/70
--- NOTE | 2019-02-27 20:20 | NUR ---
MEDICATED WITH DILAUDID FOR C/O PAIN IN ABD AND THROAT. CL IN REACH.
--- NOTE | 2019-02-28 00:30 | NUR ---
MEDICATED WITH DILAUDID AND ZOFRAN FOR C/O PAIN AND NAUSEA. SALINE LOCK TO RT FOREARM LEAKED WHEN FLUSHED. SALINE LOCK DC/D AT THIS TIME. CL IN REACH.
[2019-02-28 01:12] VITALS: BP 151/79
--- NOTE | 2019-02-28 04:00 | NUR ---
I have reviewed this patient and I concur with the Shift Assessment completed by the Licensed Practical Nurse today this shift.
[2019-02-28 05:01] VITALS: BP 147/78
[2019-02-28 06:37] LABS: BASOPHILS 0.6 % (0-2); EOSINOPHILS 6.9 % (0-7); HEMATOCRIT 34.7 % (36.0-48.0); HEMOGLOBIN 11.6 g/dL (12-16); IMMATURE GRANULOCYTES 0.2 % (0-5); LYMPHOCYTES 33.7 % (15-50); MCHC 33.4 g/dL (31.0-37.0); MCV 89.7 fL (80.0-100.0); MEAN PLATELET VOLUME 12.3 fL (7.4-10.4); MONOCYTES 12.7 % (2-11); NEUTROPHILS 45.9 % (40-80); PLATELET COUNT 230 10x3/uL (130-400); RBC 3.87 10x6/uL (4.00-5.40); RDW 12.4 % (11.5-14.5)
[2019-02-28 06:55] LABS: ALBUMIN 2.6 g/dL (3.4-5.0); ALKALINE PHOSPHATASE 257 U/L (46-116); ALT (SGPT) 28 U/L (10-68); BILIRUBIN - TOTAL 0.29 mg/dL (0.2-1.3); CALCIUM 8.3 mg/dL (8.5-10.1); CARBON DIOXIDE 25.2 mmol/L (21.0-32.0); CHLORIDE - SERUM 107 mmol/L (98-107); CREATININE - SERUM 0.5 mg/dL (0.6-1.3); GLUCOSE 110 mg/dL (74-106); POTASSIUM - SERUM 3.3 mmol/L (3.5-5.1); PROTEIN - SERUM 6.1 g/dL (6.4-8.2); SODIUM 144 mmol/L (136-145); eGFR NON AFRICAN AMERICAN > 90 mL/min (90-120)
[2019-02-28 06:58] LABS: CALC OSMOLALITY 284 mosm/kg (275-300); UREA NITROGEN 5 mg/dL (7-18)
--- NOTE | 2019-02-28 07:20 | NUR ---
PT RESTING IN BED, REPORTS OF PAIN 7/10 AT THIS TIME. EDUCATED PT REGARDING NEXT TIME MED TO BE ADMINISTERED. PT VOICES UNDERSTANDING. IV TO LEFT FOREARM WITH PROCALAMINE @ 75ML/HR INFUSING VIA PUMP. SITE WITHOUT REDNESS OR EDEMA. PEG TUBE INTACT TO LEFT ABDOMEN. PT DENIES FURTHER NEEDS AT THIS TIME. CL WITHIN REACH. ENCOURAGED TO CALL WITH NEEDS. CONTINUE POC
[2019-02-28 08:38] VITALS: BP 143/83
[2019-02-28 12:46] VITALS: BP 137/77
--- NOTE | 2019-02-28 13:45 | NUR ---
ONE CAN OF 2 AMANDA ADMININSTERED VIA PEG FOR BOLUS FEEDING. CONSUMPTION TIME 46 MINUTES FOR ONE CAN. PT ALYCIA WELL. WITHOUT NAUSEA OR VOMITING.
--- NOTE | 2019-02-28 13:57 | MORECARE ---
CASE MANAGEMENT DISCHARGE SUMMARY PATIENT: JASON OZUNA UNIT: [id number] ADM DATE: 02/24/19 AGE: 58 : 62 SEX: F ROOM/BED: D.2214 AUTHOR: MARCELLO MACIEL PHYSICIAN: REFERRING PHYSICIAN: BOB VARGAS MD DATE OF SERVICE: 02/28/19 Discharge Plan Patient Name: JASON OZUNA [facility] [facility] 1960 Planned Disposition: Home Anticipated Discharge Date: Discharge Date: Expected LOS: Initial Reviewer: [email or web address] Initial Review Date: 02/25/2019 Generated: 02/28/19 2:57 pm DCPIA - Discharge Planning Initial Assessment Updated by [email or web address]: Tiana Lebron on 02/28/19 1:52 pm * Is the patient Alert and Oriented? Yes * How many steps to enter\exit or inside your home? ramp * PCP Dr Rodriguez * [facility] [place] * Preadmission Environment Home with Family * ADLs Partial Dependent * Partial ADLs (Assistance needed) Toileting * Equipment Nebulizer Rolling Walker Tub Bench * List name and contact numbers for known caregivers / representatives who currently or will assist patient after discharge: Ary Maharaj [phone] * Verbal permission to speak to the caregivers and representatives has been obtained from the patient. N/A * Community resources currently utilized Infusion [facility] * Please name any agencies selected above. [facility] * Additional services required to return to the preadmission environment? No * Can the patient safely return to the preadmission environment? Yes * Has this patient been hospitalized within the prior 30 days at any hospital? Yes Patient Name: JASON OZUNA Page [phone] at 1357 All edits/amendments must be made on the electronic document DICTATION DATE: 02/28/19 1356 BAGGAGE CHECKER: KATH 02/28/19 1356 RPT#: [id number] DC DATE: STATUS: ADM IN [facility] [address] [place] [address] END OF REPORT
--- NOTE | 2019-02-28 14:06 | MORECARE ---
CASE MANAGEMENT DISCHARGE SUMMARY PATIENT: JASON OZUNA UNIT: [id number] ADM DATE: 02/24/19 AGE: 58 : 62 SEX: F ROOM/BED: D.2214 AUTHOR: JANELLDOC PHYSICIAN: REFERRING PHYSICIAN: BOB VARGAS MD DATE OF SERVICE: 02/28/19 Discharge Plan Patient Name: JASON OZUNA Facility: [facility]:[place] : 1960 Planned Disposition: Home Anticipated Discharge Date: Discharge Date: Expected LOS: Initial Reviewer: [email or web address] Initial Review Date: 02/25/2019 Generated: 02/28/19 3:06 pm Comments DCP- Discharge Planning Updated by [email or web address]: Tiana Lebron on 02/28/19 12:[address] Patient Name: JASON OZUNA Admission Status: ER Accout number: [id number] Admission Date: 02-24-2019 : 1960 Admission Diagnosis: Attending: BOB VARGAS Current LOS: 4 Anticipated DC Date: Planned Disposition: Home Primary Insurance: [facility] BENEFIT FUND Discharge Planning Comments: CM met with patient to complete initial dc planning assessment. CM educated patient on the CM role and verbal consent given by patient to complete assessment. Patient lives at home with her . At discharge patient plans to return home and feels this is a safe discharge. She is independent with her ADL's. CM discussed availability of home health, rehab services, and medical equipment. She does not have any Home Health Visits left. She is current with [facility] with her tube feedings. She wants to continue with [facility] when DC. She has a walker, nebulizer, rolling walker,, tub bench, wheelchair at home. Patient denied known discharge needs at this time. CM will continue to follow and will assist as needed with dc plans/needs. Director Safety: Tiana Lebron DCPIA - Discharge Planning Initial Assessment Updated by [email or web address]: Tiana Lebron on 02/28/19 1:52 pm * Is the patient Alert and Oriented? Yes * How many steps to enter\exit or inside your home? ramp * PCP Dr Rodriguez * Pharmacy [facility] in [place] * Preadmission Environment Home with Family * ADLs Partial Dependent * Partial ADLs (Assistance needed) Toileting * Equipment Nebulizer Rolling Walker Tub Bench * List name and contact numbers for known caregivers / representatives who currently or will assist patient after discharge: Ary Maharaj [phone] * Verbal permission to speak to the caregivers and representatives has been obtained from the patient. N/A * Community resources currently utilized [facility]fusion [facility] * Please name any agencies selected above. [facility] * Additional services required to return to the preadmission environment? No * Can the patient safely return to the preadmission environment? Yes * Has this patient been hospitalized within the prior 30 days at any hospital? Yes Coverage Notice Reviewer: [email or web address] Ismael Lebron Notice Issued Date-Time: 02/28/2019 8:00 Notice Type: Patient Choice Letter Notice Delivered To: Patient Relationship to Patient: Early Childhood Associate Teacher Name: Delivery Method: HAND - Hand Delivered [place] Days: Prior Verbal Notification: Recipient Understood Notice: Yes Recipient Signature: Yes Med Rec Note Co-signed by Attending: Coverage Notice Comment: Last DP export: 02/28/19 12:57 p Patient Name: JASON OZUNA Page [phone] at 1406 All edits/amendments must be made on the electronic document DICTATION DATE: 02/28/19 140 MED SPECIALIST: KATH 02/28/19 1406 RPT#: [id number] DC DATE: STATUS: ADM IN [facility] [address] [place] [address] END OF REPORT
[2019-02-28 16:12] VITALS: BP 153/79
[2019-02-28 20:00] VITALS: BP 137/78
--- NOTE | 2019-02-28 21:19 | NUR ---
PT IV INFULTRATED. NEW IV SITE RT FA 20G. ATTEMPTS X1. PT TOLERATED WELL. IV FLUIDS RESTARTED. WILL CONTINUE PLAN OF CARE. CALL LIGHT IN REACH.
--- NOTE | 2019-02-28 23:08 | NUR ---
PT RESTING IN BED. ALERT AND ORIENTED. NO SIGNS OF DISTRESS. BREATHING EVEN AND UNLABORED. PT STATES NO PROBLEMS AT THIS TIME. IV SITE RT FA DRESSING CLEAN DRY AND INTACT. NO SIGNS OF INFECTION. LUNG SOUNDS CLEAR. BOWEL SOUNDS ACTIVE. ABD MIDLINE INCISION OLD. NO SIGNS OF INFECTION. PEG TUBE LT UPPER ABD CLEAN DRY AND ITNACT. WILL CONTINUE PLAN OF CARE. CALL LIGHT IN REACH. BED LOWERED AND LOCKED. BED RAILS UPX1.
--- NOTE | 2019-02-28 23:46 | NUR ---
I have reviewed this patient and I concur with the Shift Assessment completed by the Licensed Practical Nurse today this shift.
[2019-03-01 04:00] VITALS: BP 119/66
[2019-03-01 06:31] LABS: BASOPHILS 0.5 % (0-2); EOSINOPHILS 7.7 % (0-7); HEMATOCRIT 35.7 % (36.0-48.0); HEMOGLOBIN 11.9 g/dL (12-16); IMMATURE GRANULOCYTES 0.2 % (0-5); LYMPHOCYTES 35.2 % (15-50); MCH 29.9 pg (26.0-34.0); MCHC 33.3 g/dL (31.0-37.0); MCV 89.7 fL (80.0-100.0); MEAN PLATELET VOLUME 12.2 fL (7.4-10.4); MONOCYTES 12.7 % (2-11); NEUTROPHILS 43.7 % (40-80); PLATELET COUNT 223 10x3/uL (130-400); RBC 3.98 10x6/uL (4.00-5.40); RDW 12.5 % (11.5-14.5); WBC 6.2 10x3/uL (4.8-10.8)
[2019-03-01 07:21] LABS: ALBUMIN 2.5 g/dL (3.4-5.0); ALKALINE PHOSPHATASE 218 U/L (46-116); ALT (SGPT) 24 U/L (10-68); BILIRUBIN - TOTAL 0.19 mg/dL (0.2-1.3); CALC OSMOLALITY 277 mosm/kg (275-300); CALCIUM 8.7 mg/dL (8.5-10.1); CARBON DIOXIDE 28.5 mmol/L (21.0-32.0); CHLORIDE - SERUM 104 mmol/L (98-107); CREATININE - SERUM 0.4 mg/dL (0.6-1.3); GLUCOSE 124 mg/dL (74-106); POTASSIUM - SERUM 3.2 mmol/L (3.5-5.1); PROTEIN - SERUM 5.9 g/dL (6.4-8.2); SODIUM 140 mmol/L (136-145); UREA NITROGEN 7 mg/dL (7-18); eGFR NON AFRICAN AMERICAN > 90 mL/min (90-120)
--- NOTE | 2019-03-01 08:00 | NUR ---
PT RESTING IN BED. NO S/S OF ACUTE DISTRESS. CL IN PLACE.
[2019-03-01 08:19] VITALS: BP 153/67
--- NOTE | 2019-03-01 12:56 | NUR ---
GUS DRAWN UP NOT USED, TWRN
--- NOTE | 2019-03-01 13:33 | NUR ---
Nutrition follow-up: Received consult to resume bolus TFof TwoCal HN 02/28/19 Visited with pt who states she did very well on TwoCal HN at home Labs reviewed WT: 226# On 02/28/19 ordered placed for 3 cans of TwoCal HN / day with 120 ml H2O flush before/after. Pt had EGD today RDN following.
[2019-03-01 13:46] VITALS: BP 131/63
--- NOTE | 2019-03-01 14:18 | NUR ---
7011 REC'D PT FROM PACU. CO OF NAUSEA. ALCOHOL PAD GIVEN. NO S/S OF ACUTE DISTRESS. AT BEDSIDE. CL IN PLACE.
--- NOTE | 2019-03-01 17:10 | OP ---
PATIENT NAME: JASON OZUNA MEDICAL RECORD: [id number] :62 LOCATION:D.MS Sanches2214 ADMISSION DATE:02/24/19 SURGEON: KASIA ZENDEJAS MD DATE OF OPERATION: 03/01/2019 SURGEON: Kasia Zendejas MD PREOPERATIVE DIAGNOSES: 1. Gastrointestinal bleeding. 2. Benign esophageal stricture. 3. History of esophageal stent placement. 4. Dysphagia. POSTOPERATIVE DIAGNOSES: 1. Gastrointestinal bleeding. 2. Benign esophageal stricture. 3. History of esophageal stent placement. 4. Dysphagia. PROCEDURE PERFORMED: 1. EGD with stent removal 2. Savary dilation of esophageal stricture. ANESTHESIA: General. COMPLICATIONS: None. SPECIMENS: None. Case contaminated. OPERATIVE COURSE: After consent was obtained, the patient was taken to the operating room and placed in supine position in hospital bed. General anesthesia was given via endotracheal intubation. A bite block was placed. A timeout was taken to confirm the correct patient and procedure. The gastroscope was inserted through the biteblock into the posterior oropharynx. It was passed posterior to the epiglottis. Again, almost immediately below the epiglottis, the stricture was encountered. There was minimal migration of the stent to just below the proximal margin of the esophageal stricture. The scope was easily traversed through the stricture, it was passed through the esophagus and then through the GE junction. The stomach was insufflated. The gastrostomy tube was identified within the stomach with the balloon inflated and good position. The scope was then passed through the pylorus where a duodenoduodenostomy was encountered. This was consistent with the CT scan findings from 3 days prior. The anastomosis appeared patent. The scope was retracted to the antrum and retroflexed. The stomach appeared grossly within normal limits. There was minimal gastritis. The scope was then retracted back into the distal esophagus, was retracted to the proximal esophagus through the epiglottis. The proximal portion of stent was able to be identified. There was significant tissue ingrowth into the esophageal stent. The suture was identified. At this time, the rat tooth grasper was used to grab the proximal portion of the retrieval stent. The gastroscope and stent were removed. The stent was removed in its entirety. The scope was reinserted. There was significant mucosal trauma. There was minimal active bleeding. There were no obvious signs of perforation. The area was copiously irrigated and suctioned. The scope was then again OPERATIVE REPORT [id number] JASON OZUNA advanced through the area of esophageal stricture in the stomach. The Savary dilator and wire was passed through the working channel scope and placed in the stomach body under direct endoscopic vision. The scope was removed. Savary dilators were then passed over the wire under direct endoscopic vision. The scope was reinserted to the oropharynx and just below the upper esophageal sphincter and epiglottis. Next, the Savary dilators were passed over the wire in a standard Seldinger fashion starting with an 8-mm dilator and this was continued all the way to an 11-mm dilator. Again, there were no signs of esophageal perforation. At this time, the wire was removed. A 12-mm balloon was placed through the working channel of the scope and over the area of stricture. The balloon was inflated to 12 mm and held for 5 minutes for additional dilatation as well as hemostasis. The balloon was deflated. The dilator was removed. The scope was advanced through the area of the proximal esophagus. There was no active bleeding, no evidence of perforation. At this time, the scope was slowly withdrawn and the procedure was terminated. At the end of the case all needle and instrument counts were correct. No complications occurred. The patient was extubated and transferred to PACU in satisfactory condition. TRANSINT:[id number] Voice Confirmation ID: [id number] DOCUMENT ID: [id number] KASIA ZENDEJAS MD at 1710 CC: [id number] DICTATION DATE: 03/01/19 1312 PERMACULTURE CONTRACTOR: 03/01/19 1450 [facility] [place] [id number] [place] [address]
--- NOTE | 2019-03-01 18:43 | NUR ---
PT RESTING IN BED. NO S/S OF ACUTE DISTRESS. CL IN PLACE.
--- NOTE | 2019-03-01 19:35 | NUR ---
PT SITTING UP IN BED WITHOUT DISTRESS, AOX4. STATES PAIN IS FROM SORE THROAT. TOLERATING ICE CHIPS. IV RIGHT FA INFUSING NS @ KVO. PROVIDED HEAT PACK FOR SORE NECK. DENIES OTHER NEEDS. CL IN REACH, WILL CTM
--- NOTE | 2019-03-01 21:30 | NUR ---
PT STATES PAIN 9/10 IN THROAT, GAVE DILAUDID AND ZOFRAN ORDERED. PROVIDED NEW HEAT PACK. DENIES FURTHER NEEDS. CL IN REACH, WILL CTM
[2019-03-02] VITALS: BP 140/71
--- NOTE | 2019-03-02 01:45 | NUR ---
STATES PAIN 8/10 IN THROAT. GAVE DILAUDID AND ZOFRAN ORDERED. PROVIDED ICE CHIPS. DENIES OTHER NEEDS. CL IN REACH, WILL CTM
[2019-03-02 06:00] VITALS: BP 142/63
[2019-03-02 06:35] LABS: ALBUMIN 2.6 g/dL (3.4-5.0); ALKALINE PHOSPHATASE 206 U/L (46-116); ALT (SGPT) 21 U/L (10-68); CALC OSMOLALITY 278 mosm/kg (275-300); CALCIUM 8.9 mg/dL (8.5-10.1); CARBON DIOXIDE 26.6 mmol/L (21.0-32.0); CHLORIDE - SERUM 104 mmol/L (98-107); CREATININE - SERUM 0.4 mg/dL (0.6-1.3); GLUCOSE 150 mg/dL (74-106); PROTEIN - SERUM 5.6 g/dL (6.4-8.2); SODIUM 139 mmol/L (136-145); UREA NITROGEN 8 mg/dL (7-18); eGFR NON AFRICAN AMERICAN > 90 mL/min (90-120)
[2019-03-02 06:36] LABS: BASOPHILS 0 % (0-2); EOSINOPHILS 0 % (0-7); HEMATOCRIT 35.6 % (36.0-48.0); HEMOGLOBIN 11.8 g/dL (12-16); IMMATURE GRANULOCYTES 0.3 % (0-5); LYMPHOCYTES 18.9 % (15-50); MCH 29.9 pg (26.0-34.0); MCHC 33.1 g/dL (31.0-37.0); MCV 90.1 fL (80.0-100.0); MEAN PLATELET VOLUME 12.8 fL (7.4-10.4); MONOCYTES 5.4 % (2-11); NEUTROPHILS 75.4 % (40-80); PLATELET COUNT 225 10x3/uL (130-400); RBC 3.95 10x6/uL (4.00-5.40); RDW 12.3 % (11.5-14.5); WBC 7.4 10x3/uL (4.8-10.8)
[2019-03-02 06:40] LABS: POTASSIUM - SERUM 4.2 mmol/L (3.5-5.1)
--- NOTE | 2019-03-02 07:43 | NUR ---
PT RESTING IN BED WITH EYES OPEN, ALERT AND ORIENTED. NO S/S OF DISTRESS CURRENTLY. DENIES ANY NEEDS AT THIS TIME, WILL CONT TO MONITOR. BED LOW, CALL LIGHT IN REACH, RAILS UP.
[2019-03-02 08:57] VITALS: BP 149/72
--- NOTE | 2019-03-02 09:15 | NUR ---
FLUSHED PEG WITH 60ML OF WATER, FED W/ TWO-AMANDA HN 240ML, FLUSHED AFTER WITH ANOTHER 60ML OF WATER. NO S/S OF DISTRESS, PT DENIES NEEDS AT THIS TIME.
[2019-03-02] MEDS ORDERED: HYDROCODON-ACE1 EAC7 PO (09:51)
[2019-03-02] MEDS ORDERED: PREDNISONE20 MG PO (09:54)
--- NOTE | 2019-03-02 10:51 | MORECARE ---
CASE MANAGEMENT DISCHARGE SUMMARY PATIENT: JASON OZUNA UNIT: [id number] ADM DATE: 02/24/19 AGE: 58 : 62 SEX: F ROOM/BED: D.2214 AUTHOR: MARCELLO MACIEL PHYSICIAN: REFERRING PHYSICIAN: BOB VARGAS MD DATE OF SERVICE: 03/02/19 Discharge Plan Patient Name: JASON OZUNA Facility: [facility]:[place] : 1960 Planned Disposition: Home Anticipated Discharge Date: Discharge Date: Expected LOS: Initial Reviewer: [email or web address] Initial Review Date: 02/25/2019 Generated: 03/02/19 11:51 am Comments DCP- Discharge Planning Updated by [email or web address]: Tiana Lebron on 03/02/19 9:[address] Patient discharging home today, I gave her a brochure for [facility] and explained to her that there is a nurse leasing consultant 04/01 with the number. CM will continue to follow and assist with dc planning as needed DCP- Discharge Planning Updated by [email or web address]: Tiana Lebron on 02/28/19 12:[address] Patient Name: JASON OZUNA Admission Status: ER Accout number: [id number] Admission Date: 02-24-2019 : 1960 Admission Diagnosis: Attending: BOB VARGAS Current LOS: 4 Anticipated DC Date: Planned Disposition: Home Primary Insurance: [facility] FUND Discharge Planning Comments: CM met with patient to complete initial dc planning assessment. CM educated patient on the CM role and verbal consent given by patient to complete assessment. Patient lives at home with her . At discharge patient plans to return home and feels this is a safe discharge. She is independent with her ADL's. CM discussed availability of home health, rehab services, and medical equipment. She does not have any Home Health Visits left. She is current with [facility] with her tube feedings. She wants to continue with [facility] when DC. She has a walker, nebulizer, rolling walker,, tub bench, wheelchair at home. Patient denied known discharge needs at this time. CM will continue to follow and will assist as needed with dc plans/needs. Employment Director: Tiana Lebron DCPIA - Discharge Planning Initial Assessment Updated by [id number]: Tiana Lebron on 02/28/19 1:52 pm * Is the patient Alert and Oriented? Yes * How many steps to enter\exit or inside your home? ramp * PCP Dr Rodriguez * [facility] [place] * Preadmission Environment Home with Family * ADLs Partial Dependent * Partial ADLs (Assistance needed) Toileting * Equipment Nebulizer Rolling Walker Tub Bench * List name and contact numbers for known caregivers / representatives who currently or will assist patient after discharge: Ary Maharaj [phone] * Verbal permission to speak to the caregivers and representatives has been obtained from the patient. N/A * Community resources currently utilized Infusion Services * Please name any agencies selected above. [facility] * Additional services required to return to the preadmission environment? No * Can the patient safely return to the preadmission environment? Yes * Has this patient been hospitalized within the prior 30 days at any hospital? Yes Coverage Notice Reviewer: [id number] - Tiana Lebron Notice Issued Date-Time: 02/28/2019 8:00 Notice Type: Patient Choice Letter Notice Delivered To: Patient Relationship to Patient: Trim Setter Helper Name: Delivery Method: HAND - Hand Delivered [place] Days: Prior Verbal Notification: Recipient Understood Notice: Yes Recipient Signature: Yes Med Rec Note Co-signed by Attending: Coverage Notice Comment: Last DP export: 02/28/19 1:06 p Patient Name: JASON OZUNA Page 28791 at 1051 All edits/amendments must be made on the electronic document DICTATION DATE: 03/02/19 1050 AUTOMATIC PINSETTER ADJUSTER: KATH 03/02/19 1050 RPT#: [id number] DC DATE: STATUS: ADM IN [facility] [address] [place] [address] END OF REPORT
[2019-03-02] MEDS ORDERED: FLORAJEN3 CAPS460 MG PO (11:11)
--- NOTE | 2019-03-02 16:13 | NUR ---
PT DC`D HOME WITH VIA WHEELCHAIR AND HOSPITAL STAFF.
--- NOTE | 2019-03-09 13:53 | MORECARE ---
CASE MANAGEMENT DISCHARGE SUMMARY PATIENT: JASON OZUNA UNIT: [id number] ADM DATE: 02/24/19 AGE: 58 : 62 SEX: F ROOM/BED: D.2214 AUTHOR: MARCELLO MACIEL PHYSICIAN: REFERRING PHYSICIAN: BOB VARGAS MD DATE OF SERVICE: 03/09/19 Discharge Plan Patient Name: JASON OZUNA Facility: [facility]:[place] : 1960 Planned Disposition: Home Anticipated Discharge Date: Discharge Date: 03/02/2019 Expected LOS: 0 Initial Reviewer: [email or web address] Initial Review Date: 02/25/2019 Generated: 03/09/19 2:53 pm Comments DCP- Discharge Planning Updated by [id number]: Tiana Lebron on 03/02/19 9:[address] Patient discharging home today, I gave her a brochure for [facility] and explained to her that there is a nurse marble installation helper 04/01 with the number. CM will continue to follow and assist with dc planning as needed DCP- Discharge Planning Updated by [email or web address]: Tiana Lebron on 02/28/19 12:[address] Patient Name: JASON OZUNA Admission Status: ER Accout number: [id number] Admission Date: 02-24-2019 : 1960 Admission Diagnosis: Attending: BOB VARGAS Current LOS: 4 Anticipated DC Date: Planned Disposition: Home Primary Insurance: [facility] BENEFIT FUND Discharge Planning Comments: CM met with patient to complete initial dc planning assessment. CM educated patient on the CM role and verbal consent given by patient to complete assessment. Patient lives at home with her . At discharge patient plans to return home and feels this is a safe discharge. She is independent with her ADL's. CM discussed availability of home health, rehab services, and medical equipment. She does not have any Home Health Visits left. She is current with [facility] with her tube feedings. She wants to continue with [facility] when DC. She has a walker, nebulizer, rolling walker,, tub bench, wheelchair at home. Patient denied known discharge needs at this time. CM will continue to follow and will assist as needed with dc plans/needs. Linoleum Installer: Tiana Lebron DCPIA - Discharge Planning Initial Assessment Updated by [email or web address]: Tiana Lebron on 02/28/19 1:52 pm * Is the patient Alert and Oriented? Yes * How many steps to enter\exit or inside your home? ramp * PCP Dr Rodriguez * [facility] [place] * Preadmission Environment Home with Family * ADLs Partial Dependent * Partial ADLs (Assistance needed) Toileting * Equipment Nebulizer Rolling Walker Tub Bench * List name and contact numbers for known caregivers / representatives who currently or will assist patient after discharge: Ary Carol Ann [phone] * Verbal permission to speak to the caregivers and representatives has been obtained from the patient. N/A * Community resources currently utilized Infusion Services * Please name any agencies selected above. [facility] * Additional services required to return to the preadmission environment? No * Can the patient safely return to the preadmission environment? Yes * Has this patient been hospitalized within the prior 30 days at any hospital? Yes Coverage Notice Reviewer: [email or web address] - Tiana Lebron Notice Issued Date-Time: 02/28/2019 8:00 Notice Type: Patient Choice Letter Notice Delivered To: Patient Relationship to Patient: Strategy Manager Name: Delivery Method: HAND - Hand Delivered [place] Days: Prior Verbal Notification: Recipient Understood Notice: Yes Recipient Signature: Yes Med Rec Note Co-signed by Attending: Coverage Notice Comment: Last DP export: 03/02/19 9:51 a Patient Name: JASON OZUNA Page [id number] at 1353 All edits/amendments must be made on the electronic document DICTATION DATE: 03/09/19 1353 RESTORATIVE COORDINATOR: KATH 03/09/19 1353 RPT#: [id number] DC DATE:03/02/19 STATUS: DIS IN [facility] [address] [place] [address] END OF REPORT
--- NOTE | 2019-03-13 17:51 | OP ---
PATIENT NAME: JASON OZUNA MEDICAL RECORD: [id number] :62 LOCATION:D.MS Sanches2214 ADMISSION DATE:02/24/19 SURGEON: GARLAND RITTER MD DATE OF OPERATION: 02/26/2019 PREOPERATIVE DIAGNOSES: 1. Intractable nausea and vomiting. 2. Upper gastrointestinal bleeding. POSTOPERATIVE DIAGNOSES: 1. Intractable nausea and vomiting. 2. Upper gastrointestinal bleeding. 3. Indwelling esophageal stent and stenosis of the esophagus just cephalad to the esophageal stent. 4. Mild pangastritis. PROCEDURES: 1. Esophagogastroduodenoscopy with antral biopsies. 2. Balloon dilation of esophagus, 21-Chadian. SURGEON: Garland Ritter MD GEOGRAPHIC INFORMATION SCIENTIST: None. BLOOD LOSS: Minimal. ANESTHESIA: IV sedation. COMPLICATIONS: None. The risks, possible complications and alternatives to the procedure were explained to the patient. She elects to proceed. OPERATIVE COURSE: The patient was conveyed to endoscopy suite electively on 02/26/2019. IV sedation was induced by the anesthesia staff. A bite block was inserted. A gastroscope was inserted into the mouth. It was advanced easily into the hypopharynx. The esophagus was then intubated. There was a tight stenosis. It would not allow me to admit my gastroscope through the stenotic area. I advanced a sigoadt-tgl-mpoagrdz balloon. I then dilated the strictured area up to 21-Chadian. It became a little tight on the balloon at that time, so I did not attempt to dilate it any further. The balloon was then deflated and was withdrawn. I was then able to advance the gastroscope through this area down the stent and into the stomach and duodenum. Upon withdrawal, retroflexed and angulus views were obtained. Antral biopsies were obtained. I then slowly withdrew the endoscope. I noted no full thickness injury to the esophagus. I did not attempt to manipulate the esophageal stent. The patient's surgeon will be returning soon and I will be discussing my endoscopic findings with him. TRANSINT:[id number] Voice Confirmation ID: [id number] DOCUMENT ID: [id number] OPERATIVE REPORT [id number] JASON OZUNA GARLAND RITTER MD at 1698 CC: [id number] DICTATION DATE: 03/13/19 1304 SUPERVISOR DOPING: 03/13/19 1406 DIS IN 03/02/19 [facility] [address] [facility] [place] [address]
[2019-04-24] MEDS ORDERED: PREDNISOLO15 MG/5 M2 PO (13:11)
[2019-04-24] MEDS ORDERED: FAMOTIDINE 40 MG/5 ML GT (13:13)
[2019-04-24] MEDS ORDERED: CELEXA20 MG PO (13:14)
== END 2019-03-02 16:14 | disposition home or self-care (01) | DRG 378 ==
LOC: D.ER 17:51 → D.MS 23:36
PROVIDERS: Family Medicine; Surgery; ADMIT Internal Medicine Nephrology; ATTEND Internal Medicine Nephrology
PROC: 0DB68ZX Excision of Stomach, Via Natural or Artificial Opening Endoscopic, Diagnostic (ICD-10-PCS; 2019-02-26)
PROC: 0D758ZZ Dilation of Esophagus, Via Natural or Artificial Opening Endoscopic (ICD-10-PCS; principal; 2019-02-26 08:00)
PROC: 0D758ZZ Dilation of Esophagus, Via Natural or Artificial Opening Endoscopic (ICD-10-PCS; 2019-03-01)
PROC: 0DP58DZ Removal of Intraluminal Device from Esophagus, Via Natural or Artificial Opening Endoscopic (ICD-10-PCS; 2019-03-01)
DX: K92.2 Gastrointestinal hemorrhage, unspecified (principal); A09 Infectious gastroenteritis and colitis, unspecified; E87.1 Hypo-osmolality and hyponatremia; K31.84 Gastroparesis; I10 Essential (primary) hypertension; M19.90 Unspecified osteoarthritis, unspecified site; E21.5 Disorder of parathyroid gland, unspecified; R74.0 Nonspecific elevation of levels of transaminase and lactic acid dehydrogenase [LDH]; R13.10 Dysphagia, unspecified; K22.2 Esophageal obstruction; K21.9 Gastro-esophageal reflux disease without esophagitis

== ENCOUNTER 2019-03-20 10:46 | Inpatient (IN) | payer OTHER ==
[~2019-03-20] VITALS: Ht 157.5 cm; Wt 99.6 kg
[~2019-03-20 10:46] MED LIST changes: +FLORAJEN3 CAPS460 MG PO; +POLY-VI-SOL W/I50 ML PO; +PREDNISONE20 MG PO
[2019-03-20] MEDS ORDERED: PROTONIX40 MG PO (10:54)
[2019-03-20] MEDS ORDERED: ZANTAC300 MG PO (10:55)
[2019-03-20] MEDS ORDERED: RANITIDINE 15 MG/ML (10:56)
[2019-03-20 11:25] LABS: BASOPHILS 0.3 % (0-2); EOSINOPHILS 2.4 % (0-7); HEMATOCRIT 37.7 % (36.0-48.0); HEMOGLOBIN 11.6 g/dL (12-16); IMMATURE GRANULOCYTES 0.2 % (0-5); LYMPHOCYTES 15.2 % (15-50); MCH 29.3 pg (26.0-34.0); MCHC 30.8 g/dL (31.0-37.0); MCV 95.2 fL (80.0-100.0); MEAN PLATELET VOLUME 11.3 fL (7.4-10.4); MONOCYTES 6.2 % (2-11); NEUTROPHILS 75.7 % (40-80); PLATELET COUNT 240 10x3/uL (130-400); RBC 3.96 10x6/uL (4.00-5.40); RDW 13.3 % (11.5-14.5); WBC 10.5 10x3/uL (4.8-10.8)
[2019-03-20 11:45] LABS: APPEARANCE CLEAR (CLEAR); BILIRUBIN NEGATIVE (NEGATIVE); COLOR YELLOW (YELLOW); GLUCOSE NEGATIVE (NEGATIVE); KETONE NEGATIVE (NEGATIVE); NITRITE NEGATIVE (NEGATIVE); PROTEIN NEGATIVE (NEGATIVE); SPECIFIC GRAVITY 1.005 (1.005-1.020); UROBILINOGEN NORMAL (NORMAL)
[2019-03-20 11:50] LABS: ALBUMIN 2.8 g/dL (3.4-5.0); ALKALINE PHOSPHATASE 176 U/L (46-116); ALT (SGPT) 37 U/L (10-68); AMYLASE - SERUM 43 U/L (25-115); BILIRUBIN - TOTAL 0.24 mg/dL (0.2-1.3); CALC OSMOLALITY 269 mosm/kg (275-300); CALCIUM 8.8 mg/dL (8.5-10.1); CARBON DIOXIDE 28.8 mmol/L (21.0-32.0); CHLORIDE - SERUM 99 mmol/L (98-107); CREATININE - SERUM 0.5 mg/dL (0.6-1.3); GLUCOSE 121 mg/dL (74-106); LIPASE 115 U/L (73-393); POTASSIUM - SERUM 4.9 mmol/L (3.5-5.1); PROTEIN - SERUM 7.1 g/dL (6.4-8.2); SODIUM 135 mmol/L (136-145); UREA NITROGEN 11 mg/dL (7-18); eGFR NON AFRICAN AMERICAN > 90 mL/min (90-120)
--- NOTE | 2019-03-20 12:30 | NUR ---
G-TUBE FLUSHED EASILY WITH 60 ML WATER.
--- NOTE | 2019-03-20 12:35 | NUR ---
SKIN UNDER G-TUBE RED AND TENDER TO TOUCH. SMALL ULCERATED AREA WITH SCANT AMT BRB NOTED. AREA CLEANSED AND DRT DRSG APPLIED
[2019-03-20 12:42] VITALS: BP 141/72
--- NOTE | 2019-03-20 13:44 | NUR ---
RTND FROM CT. CRYING, CONTINUES TO C/O PAIN @ G-TUBE SITE. MD PERERA
[2019-03-20 13:47] VITALS: BP 141/66
--- NOTE | 2019-03-20 14:45 | NUR ---
DR WHITTINGTON DISCUSSED ALLERGY TO LEVAQUIN WITH PT. PT STATED "I CAN TAKE THAT ONE" DR WHITTINGTON INSTR TO START LEVAQUIN SLOWLY AND OBS. LEVAQUIN STARTED @ 1445 AND @ 1510 PT C/O ITCHING. NO RASH NOTED. LEVAQUIN STOPPED AND DR WHITTINGTON NOTIFIED.
[2019-03-20 14:49] VITALS: BP 141/59
--- NOTE | 2019-03-20 15:35 | NUR ---
REPORT TO ALICIA PEREZ.
--- NOTE | 2019-03-20 15:35 | NUR ---
TRANSPORTED TO ROOM #2233, CONDITION STABLE
--- NOTE | 2019-03-20 15:52 | NUR ---
RECEIVED PT FROM ER, ALERT AND ORIENTED X4. UP WITH ASSIST. NO C/O PAIN. NO S/S OF ACUTE DISTRESS NOTED. IV TO LEFT WRIST, NS INFUSING @ 125ML/HR. SITE PATENT WITHOUT REDNESS OR SWELLING. PT DENIES ANY NEEDS AT THIS TIME. CALL LIGHT IN REACH. WILL CONTINUE TO MONITOR.
[2019-03-20 16:12] VITALS: BP 141/59; BMI 40.2
--- NOTE | 2019-03-20 18:27 | NUR ---
ALERT AND ORIENTED, RESTING IN BED. NO C/O PAIN, DILAUDID MACHINE CLOTHING WORKER MANAGING PAIN AT THIS TIME. NO S/S OF ACUTE DISTRESS NOTED. PT DENIES ANY NEEDS AT THIS TIME. CALL LIGHT IN REACH.
--- NOTE | 2019-03-20 19:25 | NUR ---
UP IN BED WITH TELEVISION ON, IV TO LEFT WRIST IS PATENT, NICK SETTER IS INFUSING PER ORDERS, PEG TO LUQ IS PATENT TO AUSCULTATION. SHOWS NO S/S OF ANY DISTRESS. ABLE TO VOICE ALL NEEDS. WILL NOTE ANY CHANGE.
[2019-03-20 20:15] VITALS: BP 110/60
[2019-03-21 00:47] VITALS: BP 116/59
--- NOTE | 2019-03-21 03:59 | NUR ---
I have reviewed this patient and I concur with the Shift Assessment completed by the Licensed Practical Nurse today this shift.
[2019-03-21 05:14] VITALS: BP 124/63
[2019-03-21 06:16] LABS: BASOPHILS 0.3 % (0-2); EOSINOPHILS 4.2 % (0-7); HEMATOCRIT 40.5 % (36.0-48.0); HEMOGLOBIN 12.3 g/dL (12-16); IMMATURE GRANULOCYTES 0.3 % (0-5); LYMPHOCYTES 27.8 % (15-50); MCH 29.4 pg (26.0-34.0); MCHC 30.4 g/dL (31.0-37.0); MCV 96.7 fL (80.0-100.0); MEAN PLATELET VOLUME 12.3 fL (7.4-10.4); MONOCYTES 9.3 % (2-11); NEUTROPHILS 58.1 % (40-80); PLATELET COUNT 220 10x3/uL (130-400); RBC 4.19 10x6/uL (4.00-5.40); RDW 13.7 % (11.5-14.5); WBC 7.9 10x3/uL (4.8-10.8)
[2019-03-21 06:43] LABS: CALC OSMOLALITY 278 mosm/kg (275-300); CALCIUM 8.9 mg/dL (8.5-10.1); CARBON DIOXIDE 28.9 mmol/L (21.0-32.0); CHLORIDE - SERUM 103 mmol/L (98-107); CREATININE - SERUM 0.4 mg/dL (0.6-1.3); GLUCOSE 78 mg/dL (74-106); SODIUM 141 mmol/L (136-145); UREA NITROGEN 9 mg/dL (7-18); eGFR NON AFRICAN AMERICAN > 90 mL/min (90-120)
--- NOTE | 2019-03-21 07:09 | NUR ---
PT IS RESTING IN BED WITH EYES OPEN. RESPIRATIONS ARE EVEN AND UNLABORED. PT DENIES PRESENCE OF PAIN. PIV TO LEFT WRIST INFUSING WITHOUT DIFFICULTY. SUPERVISOR SHUTTLE FITTING DILAUDID AVAILABLE PER ORDER. PT DENIES PRESENCE OF N/V AT THIS TIME. PEG TO LUQ NOTED. PT DENIES PRESENCE OF DYSPNEA/SOB. BED IS IN THE LOWEST POSITION. CALL LIGHT AND BEDSIDE TABLE ARE WITHIN REACH. SIDE RAILS X 2. PT DENIES FURTHER NEEDS. WILL CONT TO MONITOR.
[2019-03-21 08:37] VITALS: BP 136/52
[2019-03-21 11:41] VITALS: BP 108/72
--- NOTE | 2019-03-21 14:33 | NUR ---
NS INFUSION SLOWED TO 50ML/HR
[2019-03-21 15:01] VITALS: Ht 157.5 cm; Wt 99.6 kg
[2019-03-21 15:40] VITALS: BP 130/67
--- NOTE | 2019-03-21 16:07 | NUR ---
MEDICATION ADMINISTERED WITH 30ML H2O AND PEG FLUSHED WITH 60ML H2O.
--- NOTE | 2019-03-21 16:12 | NUR ---
REDNESS/IRRITATION NOTED ON MEDIAL SIDE OF GTUBE SITE. RECOMMENDED PAINTING WITH MAALOX NEEDED. WOUND CARE WILL MONITOR.
--- NOTE | 2019-03-21 17:53 | NUR ---
TWOCAL HN BOLUS FEED INITIATED. PT GRAVITY FEEDS NUTRITION ON OWN. WILL ASSIST PT WITH FEEDING AT PT REQUEST. 75ML H2O GIVEN TO FLUSH TUBE AFTER FEEDING BOLUS. PT STATES THAT SHE DOES THIS AT HOME AND DENIES ASSISTANCE AT THIS TIME.
--- NOTE | 2019-03-21 19:33 | NUR ---
UP IN BED WITH HOB ELEVATED AND TELEVISION ON. SHOWS NO S/S OF ANY ACUTE DISTRESS. ABLE TO VOICE ALL NEEDS.
[2019-03-21 20:43] VITALS: BP 125/54
--- NOTE | 2019-03-22 00:23 | NUR ---
I have reviewed this patient and I concur with the Shift Assessment completed by the Licensed Practical Nurse today this shift.
[2019-03-22 01:15] VITALS: BP 125/67
[2019-03-22 05:02] VITALS: BP 112/60
[2019-03-22 05:35] LABS: BASOPHILS 0.3 % (0-2); EOSINOPHILS 4.4 % (0-7); HEMOGLOBIN 10.8 g/dL (12-16); IMMATURE GRANULOCYTES 0.2 % (0-5); LYMPHOCYTES 31.9 % (15-50); MCH 29.2 pg (26.0-34.0); MCHC 30.9 g/dL (31.0-37.0); MEAN PLATELET VOLUME 11.2 fL (7.4-10.4); MONOCYTES 13.3 % (2-11); NEUTROPHILS 49.9 % (40-80); PLATELET COUNT 214 10x3/uL (130-400); RDW 13.4 % (11.5-14.5); WBC 6.6 10x3/uL (4.8-10.8)
[2019-03-22 05:50] LABS: CALC OSMOLALITY 261 mosm/kg (275-300); CALCIUM 8.4 mg/dL (8.5-10.1); CARBON DIOXIDE 30.3 mmol/L (21.0-32.0); CHLORIDE - SERUM 102 mmol/L (98-107); CREATININE - SERUM 0.4 mg/dL (0.6-1.3); GLUCOSE 108 mg/dL (74-106); POTASSIUM - SERUM 4.2 mmol/L (3.5-5.1); SODIUM 131 mmol/L (136-145); UREA NITROGEN 7 mg/dL (7-18); eGFR NON AFRICAN AMERICAN > 90 mL/min (90-120)
[2019-03-22 06:06] LABS: MCV 94.6 fL (80.0-100.0)
[2019-03-22 08:22] VITALS: BP 127/63
[2019-03-22 11:05] VITALS: BP 109/46
[2019-03-22] MEDS ORDERED: FLAGYL500 MG PO (12:16)
--- NOTE | 2019-03-22 13:10 | MORECARE ---
CASE MANAGEMENT DISCHARGE SUMMARY PATIENT: JASON OZUNA UNIT: [id number] ADM DATE: 03/20/19 AGE: 58 : 62 SEX: F ROOM/BED: D.2233 AUTHOR: MRACELLO MACIEL PHYSICIAN: REFERRING PHYSICIAN: BOB VARGAS MD DATE OF SERVICE: 03/22/19 Discharge Plan Patient Name: JASON OZUNA Facility: [facility]:[place] : 1960 Planned Disposition: Home Anticipated Discharge Date: 03/22/19 Discharge Date: Expected LOS: 2 Initial Reviewer: [email or web address] Initial Review Date: 03/22/2019 Generated: 03/22/19 2:10 pm Patient Name: JASON OZUNA Page [id number] at 1310 All edits/amendments must be made on the electronic document DICTATION DATE: 03/22/19 1310 FLOOR CARE SPECIALIST: KATH 03/22/19 1310 RPT#: [id number] DC DATE: STATUS: ADM IN [facility] [address] [place] [address] END OF REPORT
--- NOTE | 2019-03-22 13:18 | MORECARE ---
CASE MANAGEMENT DISCHARGE SUMMARY PATIENT: JASON OZUNA UNIT: [id number] ADM DATE: 03/20/19 AGE: 58 : 62 SEX: F ROOM/BED: D.2233 AUTHOR: JANELLDOC PHYSICIAN: REFERRING PHYSICIAN: BOB VARGAS MD DATE OF SERVICE: 03/22/19 Discharge Plan Patient Name: AJSON OZUNA Facility: [facility]:[place] : 1960 Planned Disposition: Home Anticipated Discharge Date: 03/22/19 Discharge Date: Expected LOS: 2 Initial Reviewer: [email or web address] Initial Review Date: 03/22/2019 Generated: 03/22/19 2:17 pm Comments DCP- Discharge Planning Updated by [email or web address]: Nancy Lei on 03/22/19 12:[address] Patient Name: JASON OZUNA Admission Status: ER Accout number: [id number] Admission Date: 03-20-2019 : 1960 Admission Diagnosis: Attending: BOB VARGAS Current LOS: 2 Anticipated DC Date: 03-22-2019 Planned Disposition: Home Primary Insurance: [facility] [employer] BENEFIT FUND Discharge Planning Comments: CM met with patient to complete initial dc planning assessment. CM educated patient on the CM role and verbal consent given by patient to complete assessment. Patient lives at home with her spouse. At discharge patient plans to return and feels this is a safe discharge. CM discussed availability of home health, rehab services, and medical equipment. Patient denied known discharge needs at this time. She does not have any available home health days left. She states her daughter is a nurse. CM will continue to follow and will assist as needed with dc plans/needs. Medical Staff Services Manager: Nancy Lei DCPIA - Discharge Planning Initial Assessment Updated by [email or web address]: Nancy Lei on 03/22/19 1:14 pm * Is the patient Alert and Oriented? Yes * How many steps to enter\exit or inside your home? Ramp/0 * PCP Dr. Rodriguez * Pharmacy [facility] in [place] * Preadmission Environment Home with Family * ADLs Partial Dependent * Partial ADLs (Assistance needed) Ambulation * Equipment Enteral Feeding and Supplies Nebulizer Rolling Walker Tub Bench Walker Wheelchair * List name and contact numbers for known caregivers / representatives who currently or will assist patient after discharge: Ary Maharaj [phone] Dontae edwards - [phone] * Verbal permission to speak to the caregivers and representatives has been obtained from the patient. Yes * Community resources currently utilized Infusion Services * Please name any agencies selected above. [facility] for tube feeding supplies * Additional services required to return to the preadmission environment? No * Can the patient safely return to the preadmission environment? Yes * Has this patient been hospitalized within the prior 30 days at any hospital? Yes Last DP export: 03/22/19 12:10 p Patient Name: JASON OZUNA Page 14419 at 1318 All edits/amendments must be made on the electronic document DICTATION DATE: 03/22/191316 INDUSTRIAL TRUCK DRIVER: KATH 03/22/191316 RPT#: [id number] DC DATE: STATUS: ADM IN [facility] [address] [place] [address] END OF REPORT
--- NOTE | 2019-03-22 16:01 | NUR ---
I have reviewed this patient and I concur with the Shift Assessment completed by the Licensed Practical Nurse today this shift.
--- NOTE | 2019-03-24 16:38 | MORECARE ---
CASE MANAGEMENT DISCHARGE SUMMARY PATIENT: JASON OZUNA UNIT: [id number] ADM DATE: 03/20/19 AGE: 58 : 62 SEX: F ROOM/BED: D.2233 AUTHOR: JANELL,DOC PHYSICIAN: REFERRING PHYSICIAN: BOB VARGAS MD DATE OF SERVICE: 03/24/19 Discharge Plan Patient Name: JASON OZUNA Facility: [facility]:[place] : 1960 Planned Disposition: Home Anticipated Discharge Date: 03/22/19 Discharge Date: 03/22/2019 Expected LOS: 2 Initial Reviewer: [email or web address] Initial Review Date: 03/22/2019 Generated: 03/24/19 5:38 pm Comments DCP- Discharge Planning Updated by [email or web address]: Nancy Lei on 03/22/19 12:[address] Patient Name: JASON OZUNA Admission Status: ER Accout number: [id number] Admission Date: 03-20-2019 : 1960 Admission Diagnosis: Attending: BOB VARGAS Current LOS: 2 Anticipated DC Date: 03-22-2019 Planned Disposition: Home Primary Insurance: [facility] HEALTH BENEFIT FUND Discharge Planning Comments: CM met with patient to complete initial dc planning assessment. CM educated patient on the CM role and verbal consent given by patient to complete assessment. Patient lives at home with her spouse. At discharge patient plans to return and feels this is a safe discharge. CM discussed availability of home health, rehab services, and medical equipment. Patient denied known discharge needs at this time. She does not have any available home health days left. She states her daughter is a nurse. CM will continue to follow and will assist as needed with dc plans/needs. Laundromat Worker: Nancy Lei DCPIA - Discharge Planning Initial Assessment Updated by [email or web address]: Nancy Lei on 03/22/19 1:14 pm * Is the patient Alert and Oriented? Yes * How many steps to enter\exit or inside your home? Ramp/0 * PCP Dr. Rodriguez * Pharmacy [facility] in [place] * Preadmission Environment Home with Family * ADLs Partial Dependent * Partial ADLs (Assistance needed) Ambulation * Equipment Enteral Feeding and Supplies Nebulizer Rolling Walker Tub Bench Walker Wheelchair * List name and contact numbers for known caregivers / representatives who currently or will assist patient after discharge: Ary Maharaj [phone] Dontae edwards - [phone] * Verbal permission to speak to the caregivers and representatives has been obtained from the patient. Yes * Community resources currently utilized Infusion Services * Please name any agencies selected above. [facility] for tube feeding supplies * Additional services required to return to the preadmission environment? No * Can the patient safely return to the preadmission environment? Yes * Has this patient been hospitalized within the prior 30 days at any hospital? Yes Last DP export: 03/22/19 12:18 p Patient Name: JASON OZUNA Page 48900 at 1638 All edits/amendments must be made on the electronic document DICTATION DATE: 03/24/191636 METAL NUMERICAL TOOL PROGRAMMER: KATH 03/24/191636 RPT#: [id number] DC DATE:03/22/19 STATUS: DIS IN [facility] [address] [place] [address] END OF REPORT
[2019-04-24] MEDS ORDERED: PREDNISOLO15 MG/5 M2 PO (13:11)
[2019-04-24] MEDS ORDERED: FAMOTIDINE 40 MG/5 ML GT (13:13)
[2019-04-24] MEDS ORDERED: CELEXA20 MG PO (13:14)
== END 2019-03-22 16:23 | disposition home or self-care (01) | DRG 392 ==
LOC: D.ER 10:46 → D.MS 14:48
PROVIDERS: Emergency Medicine; ADMIT Internal Medicine Nephrology; ATTEND Internal Medicine Nephrology
DX: K57.92 Diverticulitis of intestine, part unspecified, without perforation or abscess without bleeding (principal); E87.1 Hypo-osmolality and hyponatremia; I10 Essential (primary) hypertension; E21.5 Disorder of parathyroid gland, unspecified; M19.90 Unspecified osteoarthritis, unspecified site; K31.84 Gastroparesis; K28.9 Gastrojejunal ulcer, unspecified as acute or chronic, without hemorrhage or perforation; Z93.1 Gastrostomy status

== ENCOUNTER 2019-04-26 06:03 | Inpatient (IN) | payer OTHER ==
[~2019-04-26] VITALS: Ht 157.5 cm; Wt 100.0 kg
[2019-04-26] VITALS (12 sets, daily range): BP systolic 106–164; BP diastolic 64–90; Ht 157.5 cm; Wt 100.0 kg
[~2019-04-26 06:03] MED LIST changes: +CELEXA20 MG PO; +FAMOTIDINE 40 MG/5 ML GT; +FLAGYL500 MG PO; +PREDNISOLO15 MG/5 M2 PO; +RANITIDINE 15 MG/ML; +ZANTAC300 MG PO
[2019-04-26 06:40] LABS: CALC OSMOLALITY 276 mosm/kg (275-300); CALCIUM 9.8 mg/dL (8.5-10.1); CARBON DIOXIDE 32.2 mmol/L (21.0-32.0); CHLORIDE - SERUM 101 mmol/L (98-107); CREATININE - SERUM 0.6 mg/dL (0.6-1.3); GLUCOSE 77 mg/dL (74-106); POTASSIUM - SERUM 3.8 mmol/L (3.5-5.1); SODIUM 139 mmol/L (136-145); UREA NITROGEN 13 mg/dL (7-18); eGFR NON AFRICAN AMERICAN > 90 mL/min (90-120)
[2019-04-26 06:47] LABS: HEMATOCRIT 44.4 % (36.0-48.0); MCH 28.7 pg (26.0-34.0); MCHC 31.5 g/dL (31.0-37.0); MCV 91.2 fL (80.0-100.0); MEAN PLATELET VOLUME 11.8 fL (7.4-10.4); RBC 4.87 10x6/uL (4.00-5.40); RDW 14.2 % (11.5-14.5); WBC 7.6 10x3/uL (4.8-10.8)
--- NOTE | 2019-04-26 12:00 | NUR ---
1150 RECEIVED REPORT FROM Verona Welsh RN. PATIENT AWAKE AND ALERT X 3
--- NOTE | 2019-04-26 12:15 | NUR ---
patient arrived to unit in bed with GI staff
--- NOTE | 2019-04-26 12:20 | OP ---
PATIENT NAME: JASON OZUNA MEDICAL RECORD: [id number] :[birth year] LOCATION:[facility] ADMISSION DATE: SURGEON: KASIA ZENDEJAS MD DATE OF OPERATION: 04/26/2019 SURGEON: Kasia Zendejas MD PREOPERATIVE DIAGNOSIS: Completely obstructed benign upper esophageal stricture. POSTOPERATIVE DIAGNOSES: Completely obstructed benign upper esophageal stricture, question esophageal perforation. SURGEON: Kasia Zendejas MD PROCEDURE PERFORMED: EGD with balloon dilatation. COMPLICATIONS: Esophageal perforation. Case was contaminated. ESTIMATED BLOOD LOSS: Minimal. OPERATIVE COURSE: After consent was obtained, the patient was taken to the operating room and placed in the supine position. General anesthesia was given via endotracheal intubation after a timeout was performed to confirm the correct patient and procedure. A bite block was placed. The gastroscope was passed through the bite block into the posterior oropharynx. It was passed posterior to the epiglottis. Again, just several centimeters distal to the esophagus, the occlusive stricture was identified. The stricture was not able to be traversed with a scope. At this time, an 8 mm balloon dilator was passed through the working channel of the scope. It was passed through the area of stricture. It was inflated to 8 mm and held for 3 minutes. There was some mild mucosal trauma noted. After 3 minutes, the balloon was deflated and withdrawn. It was advanced through the area of stricture. A thin layer of filmy tissue was then identified with what looked like lung parenchyma concerning for an esophageal perforation. At this time, the scope was removed, the procedure was terminated. The patient was transferred to the recovery room, extubated, in stable condition. The patient will be admitted to the inpatient ICU. TRANSINT:[id number] Voice Confirmation ID: [id number] DOCUMENT ID: [id number] KASIA ZENDEJAS MD at 1220 CC: [id number] DICTATION DATE: 04/26/19 1133 LONGWALL HEADGATE OPERATOR: 04/26/19 [address] [place] [id number]
--- NOTE | 2019-04-26 13:30 | NUR ---
DR IBRAHIM NURSE CALLED AND STATED THEY WILL NOT DO ANY ESOPHAGEAL WORK. IF DR ZENDEJAS WANTS SOMETHING DONE THEY ARE TO BE SHIPPED OUT.
--- NOTE | 2019-04-26 13:30 | NUR ---
DR DINA MATOS. AWARE OF CONSULT
--- NOTE | 2019-04-26 14:39 | NUR ---
dr alvarez at bedside.
--- NOTE | 2019-04-26 14:39 | NUR ---
patient tolerated line exchange. no distress.
--- NOTE | 2019-04-26 14:48 | MORECARE ---
CASE MANAGEMENT DISCHARGE SUMMARY PATIENT: JASON OZUNA UNIT: [id number] ADM DATE: 04/26/19 AGE: 59 : 62 SEX: F ROOM/BED: D.2305 AUTHOR: MARCELLO MACIEL PHYSICIAN: REFERRING PHYSICIAN: KASIA ZENDEJAS MD DATE OF SERVICE: 04/26/19 Discharge Plan Patient Name: JASON OZUNA [facility] : 1960 Planned Disposition: Anticipated Discharge Date: Discharge Date: Expected LOS: 0 Initial Reviewer: [email or web address] Initial Review Date: 04/26/2019 Generated: 04/26/19 3:48 pm Patient Name: JASON OZUNA Page 64151 at 1448 All edits/amendments must be made on the electronic document DICTATION DATE: 04/26/191447 CHOCOLATE TEMPERER: KATH 04/26/198 RPT#: [id number] DC DATE: STATUS: REG [facility] [address] [place] [address] END OF REPORT
--- NOTE | 2019-04-26 15:10 | MORECARE ---
CASE MANAGEMENT DISCHARGE SUMMARY PATIENT: JASON OZUNA UNIT: [id number] ADM DATE: 04/26/19 AGE: 59 : 62 SEX: F ROOM/BED: D.2305 AUTHOR: MARCELLO MACIEL PHYSICIAN: REFERRING PHYSICIAN: KASIA ZENDEJAS MD DATE OF SERVICE: 04/26/19 Discharge Plan Patient Name: JASON OZUNA [facility] [facility] 1960 Planned Disposition: Anticipated Discharge Date: Discharge Date: Expected LOS: 0 Initial Reviewer: [email or web address] Initial Review Date: 04/26/2019 Generated: 04/26/19 4:09 pm Comments DCP- Discharge Planning Updated by [email or web address]: Steff Prabhakar on 04/26/19 2:[address] CM contacted by Marcella BENNETT and Dr. Zendejas that patient needs to transferred to a higher level of care for critical care cardio / thoracic surgeon. Dr. Goode has evaluated patient and states that he doesn't provide the care needed for this patient. [facility]. Iliana agreed to for transfer. CM called transfer center and faxed facesheet. Transfer center was given Dr. Zendejas number to call for p2p. CM will continue to follow and assist as needed with discharge planning / needs. Last DP export: 04/26/19 1:48 Patient Name: JASON OZUNA Page 79525 at 1510 All edits/amendments must be made on the electronic document DICTATION DATE: 04/26/19 1509 INTERNATIONAL EXCHANGE COORDINATOR: KATH 04/26/19 1509 RPT#: [id number] DC DATE: STATUS: REG [facility] [address] [place] [id number] END OF REPORT
--- NOTE | 2019-04-26 15:30 | NUR ---
dr alvarez spoke with family
--- NOTE | 2019-04-26 16:00 | NUR ---
dr alvarez wanted a Cd done. called radiology that he wanted most recent chest x ray, ct of chest, and 2 xray of flouroscopy
--- NOTE | 2019-04-26 16:12 | NUR ---
[address]
--- NOTE | 2019-04-26 16:14 | NUR ---
[facility] IS THE ACCEPTING FACILITY
--- NOTE | 2019-04-26 16:15 | NUR ---
FEEDING TUBE FLUSHED WITH 10 CC OF TAP WATER REQUESTED BY PATIENT. LEMON SWABS PROVIDED. WET RAG PROVIDED TO CLEAN FACE.
--- NOTE | 2019-04-26 16:24 | NUR ---
spoke with mynor felder with the [facility] in [facility]. stated we are awaiting an ICU bed. Dr. barraza is the acceping physician
--- NOTE | 2019-04-26 16:28 | NUR ---
spoke with dr alvarez. he requested we send old pathology reports regarding the esophagus.
--- NOTE | 2019-04-26 16:52 | NUR ---
ORAL CARE PROVIDED TO PATIENT.
--- NOTE | 2019-04-26 17:40 | NUR ---
report given to jorge rodrigues
--- NOTE | 2019-04-26 18:10 | NUR ---
patient left unit via stretcher with EMS
--- NOTE | 2019-04-26 18:23 | NUR ---
CD, EGD PICS, TRANSFER PAPERWORK GIVEN TO EMS. COPY IN CHART.
--- NOTE | 2019-04-27 20:03 | MORECARE ---
CASE MANAGEMENT DISCHARGE SUMMARY PATIENT: JASON OZUNA UNIT: [id number] ADM DATE: 04/26/19 AGE: 59 : 62 SEX: F ROOM/BED: D.2305 AUTHOR: MARCELLO MACIEL PHYSICIAN: REFERRING PHYSICIAN: KASIA ZENDEJAS MD DATE OF SERVICE: 04/27/19 Discharge Plan Patient Name: JASON OZUNA [facility] [facility] 1960 Planned Disposition: Anticipated Discharge Date: Discharge Date: 04/26/2019 Expected LOS: 0 Initial Reviewer: [email or web address] Initial Review Date: 04/26/2019 Generated: 04/27/19 9:03 pm DCP- Discharge Planning Updated by [email or web address]: Steff Prabhakar on 04/26/19 2:[address] CM contacted by Marcella BENNETT and Dr. Zendejas that patient needs to transferred to a higher level of care for critical care cardio / thoracic surgeon. Dr. Goode has evaluated patient and states that he doesn't provide the care needed for this patient. [facility] Iliana agreed to for transfer. CM called transfer center and faxed facesheet. Transfer center was given Dr. Zendejas number to call for p2p. CM will continue to follow and assist as needed with discharge planning / needs. Last DP export: 04/26/19 2:10 Patient Name: JASON OZUNA Page 24276 at 2002 All edits/amendments must be made on the electronic document DICTATION DATE: 04/27/192002 FIREARMS SALES ASSOCIATE: KATH 04/27/192002 RPT#: [id number] DC DATE:04/26/19 STATUS: DIS IN [facility] [address] [place] [address] END OF REPORT
== END 2019-04-26 18:40 | disposition short-term general hospital (02) | DRG 391 ==
LOC: D.OPS 06:03 → D.PAN 08:45 → D.OPS 08:45 → D.ICU 11:27 → D.OPS 12:05 → D.ICU 12:05 → D.OPS 18:29 → D.ICU 18:30
PROVIDERS: Anesthesiology; ADMIT Surgery; ATTEND Surgery
PROC: 0D758ZZ Dilation of Esophagus, Via Natural or Artificial Opening Endoscopic (ICD-10-PCS; 2019-04-26)
PROC: 05HM33Z Insertion of Infusion Device into Right Internal Jugular Vein, Percutaneous Approach (ICD-10-PCS; principal; 2019-04-26 09:00)
DX: K22.2 Esophageal obstruction (principal); K22.3 Perforation of esophagus; Z68.41 Body mass index [BMI] 40.0-44.9, adult; J98.2 Interstitial emphysema; E66.9 Obesity, unspecified; M06.9 Rheumatoid arthritis, unspecified; M79.7 Fibromyalgia; M19.90 Unspecified osteoarthritis, unspecified site; I10 Essential (primary) hypertension; K22.0 Achalasia of cardia